=== PATIENT | female | born 1950 | race African-American/Black ===

== ENCOUNTER 2018-04-04 07:14 | Inpatient (IN) | payer MEDICARE, MEDICAID ==
[2018-04-04 07:57] LABS: ADD MAN DIFF? NO
[2018-04-04 08:05] LABS: WHITE BLOOD COUNT 15.9 10^3/ul (4.8-10.8)
[2018-04-04 08:05] LABS: ABNORMAL IP MESSAGE 1; BASOPHIL # 0.1 10^3/ul (0.0-0.1); BASOPHILS % 0.4 % (0.0-2.0); EOSINOPHILS # 0.2 10^3/ul (0.0-0.5); EOSINOPHILS % 1.1 % (0.0-7.0); HEMATOCRIT 37.9 % (37.0-47.0); HEMOGLOBIN 10.7 g/dl (12.0-16.0); LYMPHOCYTES # 6.1 10^3/ul (0.8-2.9); LYMPHOCYTES % 38.3 % (15.0-51.0); MEAN CORPUSCULAR HGB CONC 28.2 g/dl (32.0-37.0); MEAN CORPUSCULAR VOLUME 88.6 fl (82.0-101.0); MEAN PLATELET VOLUME 11.5 fl (7.4-10.4); MONOCYTE # 0.9 10^3/ul (0.3-0.9); MONOCYTES % 5.6 % (0.0-11.0); NEUTROPHIL # 8.6 10^3/ul (1.6-7.5); NEUTROPHILS % 54.2 % (39.0-77.0); PLATELET COUNT 379 10^3/UL (140-415); RED BLOOD COUNT 4.28 10^6/ul (4.20-5.40); RED CELL DISTRIBUTION WIDTH 18.4 % (11.5-14.5)
[2018-04-04 08:08] LABS: POSITIVE DIFF @See below
[2018-04-04 08:15] LABS: AADO2 Arterial 370.1 mmHg (7.0-24.0); Allen Test ACCEPTAB; Arterial Base Excess 3.3 mmol/L (-3.0-3); Arterial Blood Gas Oxygen Sat 99.4 mmHG (95.0-98.0); Arterial COHb 0.7 % (0.0-3.0); Arterial Fraction of Oxyhgb 98.3 % (93.0-99.0); Arterial HCO3 31.5 mmol/L (22.0-26.0); Arterial MetHb 0.4 % (0.0-1.5); Arterial Total Hemglobin 10.8 g/dl (12.0-18.0); Blood Gas IEPAP 15/5; Blood Gas PS 10; MODE MASK - BIPAP; Site Right Radial
[2018-04-04] MEDS: CEFEPIME 1GM/50 ML (PMX) 50 ML IVPB (08:19)
[2018-04-04 08:30] LABS: INR 0.98; PARTIAL THROMBOPLASTIN TIME 30.5 Sec (25.0-35.0); PROTIME 13.1 Sec (11.9-14.9)
[2018-04-04] MEDS ORDERED: ACETAMINOPHEN 325 MG TAB PO ×2 (08:30→10:00)
[2018-04-04] MEDS ORDERED: ONDANSETRON 4 MG INJ IV ×2 (08:30→10:00)
[2018-04-04] MEDS: SODIUM CHLORIDE 0.9% 1L BAG IV* (08:36)
[2018-04-04] MEDS: VANCOMYCIN 1 GM (PMX) 250 ML IVPB (08:36)
[2018-04-04 08:41] LABS: ALANINE AMINOTRANSFERASE 43 IU/L (13-69); ALBUMIN 3.8 g/dl (3.3-4.9); ALBUMIN/GLOBULIN RATIO 1.08; ALKALINE PHOSPHATASE 123 IU/L (42-121); ANION GAP 13 (8-16); ASPARTATE AMINO TRANSFERASE 44 IU/L (15-46); BILIRUBIN,INDIRECT 0.1 mg/dl (0-1.1); BILIRUBIN,TOTAL 0.1 mg/dl (0.2-1.3); BLOOD UREA NITROGEN 15 mg/dl (7-20); CALCIUM 9.7 mg/dl (8.4-10.2); CARBON DIOXIDE 34 mmol/L (21-31); CHLORIDE 105 mmol/L (97-110); CREATININE 0.84 mg/dl (0.44-1.00); GLUCOSE 157 mg/dl (70-220); POTASSIUM 3.9 mmol/L (3.5-5.1); SODIUM 148 mmol/L (135-144); TOTAL PROTEIN 7.3 g/dl (6.1-8.1)
[2018-04-04 08:44] LABS: LACTIC ACID 0.8 mmol/L (0.5-2.0)
[2018-04-04 08:56] LABS: TROPONIN-I 0.032 ng/ml (0.000-0.120)
[2018-04-04] MEDS ORDERED: SOD CHLORIDE 0.9% 1,000 ML IV (09:49)
[2018-04-04] MEDS ORDERED: VANCOMYCIN IV PER PHARMACY XX (10:00)
[2018-04-04] MEDS ORDERED: NACL 0.9% 3 ML SYG IV (10:00)
[2018-04-04] MEDS ORDERED: DOCUSATE SODIUM 100 MG CAP PO (10:00)
[2018-04-04] MEDS: AMLODIPINE 2.5 MG TAB PO (10:30)
[2018-04-04] MEDS: SOD CHLORIDE 0.45% 1,000 ML IV ×2 (10:30→20:30)
[2018-04-04] MEDS: METHYLPREDNISOLONE 125 MG INJ IV (10:43)
[2018-04-04] MEDS: FUROSEMIDE 40 MG INJ IV (11:55)
[2018-04-04] MEDS: VANCOMYCIN 1 GM in 250 ML IVPB ×2 (11:55→22:35)
[2018-04-04] MEDS: PIPER-TAZO 3.375 GM IV (PMX) 100 ML IVPB ×3 (12:00→23:43)
[2018-04-04 12:28] LABS: ADD UMIC YES; UR ASCORBIC ACID NEGATIVE (NEGATIVE); UR BACTERIA FEW /HPF (NONE SEEN); UR BILIRUBIN (Dip) NEGATIVE (NEGATIVE); UR BLOOD (Dip) NEGATIVE (NEGATIVE); UR CLARITY CLEAR (CLEAR); UR COLOR YELLOW (YELLOW); UR GLUCOSE (Dip) NEGATIVE (NEGATIVE); UR KETONES (Dip) NEGATIVE (NEGATIVE); UR LEUKOCYTE ESTERASE (Dip) NEGATIVE Leu/ul (NEGATIVE); UR NITRITE (Dip) NEGATIVE (NEGATIVE); UR RBC 0 /HPF (0-5); UR SPECIFIC GRAVITY (Dip) 1.011 (1.003-1.030); UR SQUAMOUS EPITHELIAL CELL FEW /HPF (FEW); UR TOTAL PROTEIN (Dip) 2+ mg/dl (NEGATIVE); UR UROBILINOGEN (Dip) NEGATIVE (NEGATIVE); UR WBC 1 /HPF (0-5)
[2018-04-04] MEDS: IOHEXOL 300MG/ML 150 ML BTL (12:50)
[2018-04-04] MEDS: SOD CHLORIDE 0.9% 100 ML (12:50)
[2018-04-04] MEDS: ALBUTEROL/IPRATROPIUM (NEB) 3 ML AMP HHN ×3 (13:24→20:33)
[2018-04-04 13:47] LABS: LACTIC ACID 0.6 mmol/L (0.5-2.0)
[2018-04-04] MEDS: METHYLPREDNISOLONE 40 MG INJ IV ×2 (15:30→22:34)
[2018-04-04 17:46] LABS: LACTIC ACID 0.9 mmol/L (0.5-2.0)
[2018-04-04] MEDS: HYDROmorphONE 0.5 MG/0.5 ML SYG IV ×2 (18:03→22:33)
[2018-04-04] MEDS: hydrALAzine 20 MG INJ IV (18:03)
[2018-04-04 19:42] LABS: AADO2 Arterial 118.1 mmHg (7.0-24.0); Allen Test ACCEPTAB; Arterial Base Excess 6.3 mmol/L (-3.0-3); Arterial Blood Gas Oxygen Sat 96.3 mmHG (95.0-98.0); Arterial COHb 0.6 % (0.0-3.0); Arterial Fraction of Oxyhgb 95.3 % (93.0-99.0); Arterial HCO3 30.9 mmol/L (22.0-26.0); Arterial MetHb 0.4 % (0.0-1.5); Arterial Total Hemglobin 11.8 g/dl (12.0-18.0); Arterial pCO2 44.7 mmhg (35-45); Blood Gas IEPAP 15/5; Blood Gas PS 10; MODE MASK - BIPAP; Site Left Radial
[2018-04-04] MEDS ORDERED: VANCOMYCIN 750 MG in DEXTROSE 5% 150 ML IVPB (20:00)
[2018-04-04] MEDS: SENNA TAB PO (22:31)
[2018-04-04] MEDS: OXCARBAZEPINE 150 MG TAB PO (22:32)
[2018-04-04] MEDS: FAMOTIDINE 20 MG TAB PO (22:32)
[2018-04-04] MEDS: traZODone 100 MG TAB PO (22:32)
[2018-04-04] MEDS: BUSPIRONE 5 MG TAB PO (22:32)
[2018-04-05] MEDS: ALBUTEROL/IPRATROPIUM (NEB) 3 ML AMP HHN ×5 (00:10→21:02)
[2018-04-05] MEDS: METHYLPREDNISOLONE 40 MG INJ IV ×3 (05:34→22:03)
[2018-04-05] MEDS: PIPER-TAZO 3.375 GM IV (PMX) 100 ML IVPB ×2 (05:34→12:13)
[2018-04-05] MEDS: SOD CHLORIDE 0.45% 1,000 ML IV ×2 (05:34→16:17)
[2018-04-05 05:51] LABS: ADD MAN DIFF? NO
[2018-04-05 05:53] LABS: ABNORMAL IP MESSAGE 1; HEMATOCRIT 33.6 % (37.0-47.0); LYMPHOCYTES # 0.6 10^3/ul (0.8-2.9); LYMPHOCYTES % 6.9 % (15.0-51.0); MEAN CORPUSCULAR HEMOGLOBIN 25.1 pg (29.0-33.0); MEAN CORPUSCULAR HGB CONC 29.8 g/dl (32.0-37.0); MEAN CORPUSCULAR VOLUME 84.4 fl (82.0-101.0); MEAN PLATELET VOLUME 10.7 fl (7.4-10.4); MONOCYTE # 0.1 10^3/ul (0.3-0.9); MONOCYTES % 0.8 % (0.0-11.0); NEUTROPHIL # 7.6 10^3/ul (1.6-7.5); NEUTROPHILS % 91.9 % (39.0-77.0); PLATELET COUNT 229 10^3/UL (140-415); RED BLOOD COUNT 3.98 10^6/ul (4.20-5.40); RED CELL DISTRIBUTION WIDTH 18.1 % (11.5-14.5)
[2018-04-05 05:53] LABS: WHITE BLOOD COUNT 8.3 10^3/ul (4.8-10.8)
[2018-04-05 06:07] LABS: POSITIVE DIFF @See below
[2018-04-05 06:21] LABS: ALANINE AMINOTRANSFERASE 37 IU/L (13-69); ALBUMIN 3.5 g/dl (3.3-4.9); ALBUMIN/GLOBULIN RATIO 1.09; ALKALINE PHOSPHATASE 97 IU/L (42-121); ANION GAP 14 (8-16); ASPARTATE AMINO TRANSFERASE 32 IU/L (15-46); BILIRUBIN,INDIRECT 0.2 mg/dl (0-1.1); BILIRUBIN,TOTAL 0.2 mg/dl (0.2-1.3); BLOOD UREA NITROGEN 19 mg/dl (7-20); CALCIUM 8.8 mg/dl (8.4-10.2); CARBON DIOXIDE 32 mmol/L (21-31); CHLORIDE 101 mmol/L (97-110); CHOL/HDL RATIO 4.1 RATIO; CHOLESTEROL 256 mg/dl (100-200); CREATININE 0.88 mg/dl (0.44-1.00); GLUCOSE 117 mg/dl (70-220); HDL CHOLESTEROL 62 mg/dl (33-92); LDL CHOLESTEROL,CALCULATED 180 mg/dl; MAGNESIUM 1.2 mg/dl (1.7-2.5); PHOSPHORUS 4.1 mg/dl (2.5-4.9); POTASSIUM 3.8 mmol/L (3.5-5.1); SODIUM 143 mmol/L (135-144); TOTAL PROTEIN 6.7 g/dl (6.1-8.1); TRIGLYCERIDES 72 mg/dl (0-149)
[2018-04-05 06:49] LABS: THYROID STIMULATING HORMONE 0.671 MIU/L (0.465-4.680)
[2018-04-05] MEDS: PANTOPRAZOLE (EC) 40 MG TAB PO (07:00)
[2018-04-05 07:10] LABS: HEMOGLOBIN A1C 5.3 % (0-5.9)
[2018-04-05 08:47] LABS: AADO2 Arterial 98.1 mmHg (7.0-24.0); Allen Test ACCEPTAB; Arterial Base Excess 6.7 mmol/L (-3.0-3); Arterial Blood Gas Oxygen Sat 97.3 mmHG (95.0-98.0); Arterial COHb 0.3 % (0.0-3.0); Arterial Fraction of Oxyhgb 96.6 % (93.0-99.0); Arterial HCO3 31.6 mmol/L (22.0-26.0); Arterial MetHb 0.4 % (0.0-1.5); Arterial Total Hemglobin 10.9 g/dl (12.0-18.0); Arterial pCO2 46.5 mmhg (35-45); Blood Gas IEPAP 15/5; Blood Gas PS 10; MODE MASK - BIPAP; Site Right Radial
[2018-04-05] MEDS: CYANOCOBALAMIN 500 MCG TAB PO (09:14)
[2018-04-05] MEDS: OLOPATADINE 0.2% (ONCE A DAY) OPHTH DROP 2.5 ML BOTH EYES (09:14)
[2018-04-05] MEDS: MULTIVITAMINS THERAPEUTIC TAB PO (09:15)
[2018-04-05] MEDS: SERTRALINE 100 MG TAB PO (09:15)
[2018-04-05] MEDS: SENNA TAB PO ×2 (09:16→21:00)
[2018-04-05] MEDS: ERGOCALCIFEROL (8000 UNITS/ML PO SYG) PO (09:16)
[2018-04-05] MEDS: OXCARBAZEPINE 150 MG TAB PO (09:17)
[2018-04-05] MEDS: BUSPIRONE 5 MG TAB PO ×2 (09:18→22:03)
[2018-04-05] MEDS: FAMOTIDINE 20 MG TAB PO ×2 (09:36→21:00)
[2018-04-05] MEDS: ENOXAPARIN 40 MG/0.4 ML SYG SC (09:38)
[2018-04-05] MEDS: FUROSEMIDE 40 MG INJ IV (09:41)
[2018-04-05] MEDS: VANCOMYCIN 1 GM in 250 ML IVPB (11:04)
[2018-04-05] MEDS: LORAZEPAM 2 MG INJ IV (12:13)
[2018-04-05] MEDS: AMLODIPINE 2.5 MG TAB PO (15:13)
[2018-04-05] MEDS: HYDROmorphONE 0.5 MG/0.5 ML SYG IV ×2 (16:14→23:37)
[2018-04-05] MEDS: CEFTRIAXONE 1 GM/50 ML (PMX) 50 ML IVPB (17:01)
[2018-04-05] MEDS: MAGNESIUM SULFATE 4 GM/100 ML 100 ML IVPB (17:42)
[2018-04-05] MEDS: AZITHROMYCIN 500MG/NS (PMX) 250 ML IVPB (18:07)
[2018-04-05] MEDS: traZODone 100 MG TAB PO (21:00)
[2018-04-05] MEDS: MAGNESIUM OXIDE 400 MG TAB PO (21:03)
[2018-04-05] MEDS: OXCARBAZEPINE 300 MG TAB PO (22:03)
[2018-04-06] MEDS: ALBUTEROL/IPRATROPIUM (NEB) 3 ML AMP HHN ×6 (01:53→20:01)
[2018-04-06] MEDS: SOD CHLORIDE 0.45% 1,000 ML IV ×2 (02:30→12:24)
[2018-04-06] MEDS: METHYLPREDNISOLONE 40 MG INJ IV ×3 (05:48→22:28)
[2018-04-06 07:12] LABS: ADD MAN DIFF? NO
[2018-04-06 07:14] LABS: ABNORMAL IP MESSAGE 1; BASOPHILS % 0.1 % (0.0-2.0); HEMATOCRIT 31.1 % (37.0-47.0); HEMOGLOBIN 9.4 g/dl (12.0-16.0); LYMPHOCYTES # 0.5 10^3/ul (0.8-2.9); MEAN CORPUSCULAR HEMOGLOBIN 25.3 pg (29.0-33.0); MEAN CORPUSCULAR HGB CONC 30.2 g/dl (32.0-37.0); MEAN CORPUSCULAR VOLUME 83.8 fl (82.0-101.0); MEAN PLATELET VOLUME 11.4 fl (7.4-10.4); MONOCYTE # 0.3 10^3/ul (0.3-0.9); MONOCYTES % 2.5 % (0.0-11.0); NEUTROPHIL # 9.7 10^3/ul (1.6-7.5); PLATELET COUNT 241 10^3/UL (140-415); RED BLOOD COUNT 3.71 10^6/ul (4.20-5.40); RED CELL DISTRIBUTION WIDTH 18.3 % (11.5-14.5)
[2018-04-06 07:14] LABS: WHITE BLOOD COUNT 10.5 10^3/ul (4.8-10.8)
[2018-04-06 08:00] LABS: ANION GAP 9 (8-16); BLOOD UREA NITROGEN 26 mg/dl (7-20); CALCIUM 8.5 mg/dl (8.4-10.2); CARBON DIOXIDE 37 mmol/L (21-31); CHLORIDE 99 mmol/L (97-110); CREATININE 0.95 mg/dl (0.44-1.00); GLUCOSE 140 mg/dl (70-220); MAGNESIUM 2.5 mg/dl (1.7-2.5); PHOSPHORUS 3.7 mg/dl (2.5-4.9); POTASSIUM 3.4 mmol/L (3.5-5.1); SODIUM 142 mmol/L (135-144)
[2018-04-06] MEDS: OLOPATADINE 0.2% (ONCE A DAY) OPHTH DROP 2.5 ML BOTH EYES (09:00)
[2018-04-06] MEDS: ERGOCALCIFEROL (8000 UNITS/ML PO SYG) PO (09:00)
[2018-04-06] MEDS: HYDROmorphONE 0.5 MG/0.5 ML SYG IV ×4 (09:07→22:30)
[2018-04-06] MEDS: PANTOPRAZOLE (EC) 40 MG TAB PO (09:11)
[2018-04-06] MEDS: BUSPIRONE 5 MG TAB PO ×2 (09:12→20:38)
[2018-04-06] MEDS: FUROSEMIDE 40 MG INJ IV (09:12)
[2018-04-06] MEDS: CYANOCOBALAMIN 500 MCG TAB PO (09:13)
[2018-04-06] MEDS: SERTRALINE 100 MG TAB PO (09:13)
[2018-04-06] MEDS: OXCARBAZEPINE 300 MG TAB PO ×2 (09:14→20:39)
[2018-04-06] MEDS: FAMOTIDINE 20 MG TAB PO ×2 (09:16→20:39)
[2018-04-06] MEDS: AMLODIPINE 5 MG TAB PO (09:16)
[2018-04-06] MEDS: MAGNESIUM OXIDE 400 MG TAB PO ×2 (09:16→20:41)
[2018-04-06] MEDS: SENNA TAB PO ×2 (09:16→20:45)
[2018-04-06] MEDS: MULTIVITAMINS THERAPEUTIC TAB PO (09:16)
[2018-04-06] MEDS: ENOXAPARIN 40 MG/0.4 ML SYG SC (09:17)
[2018-04-06 09:30] LABS: AADO2 Arterial 68.4 mmHg (7.0-24.0); Allen Test ACCEPTAB; Arterial Base Excess 4.2 mmol/L (-3.0-3); Arterial Blood Gas Oxygen Sat 93.4 mmHG (95.0-98.0); Arterial COHb 0.4 % (0.0-3.0); Arterial Fraction of Oxyhgb 92.7 % (93.0-99.0); Arterial HCO3 29.1 mmol/L (22.0-26.0); Arterial MetHb 0.3 % (0.0-1.5); Arterial pCO2 44.6 mmhg (35-45); MODE NASAL CANNULA; Site Right Radial
[2018-04-06] MEDS ORDERED: VANCOMYCIN IV PER PHARMACY XX (11:00)
[2018-04-06] MEDS: VANCOMYCIN 1 GM 250 ML IVPB ×2 (12:20→23:07)
[2018-04-06] MEDS: POTASSIUM CHLORIDE (SR) 20 MEQ TAB PO (15:04)
[2018-04-06] MEDS: PIPER-TAZO 3.375 GM IV (PMX) 100 ML IVPB ×2 (15:22→22:28)
[2018-04-06] MEDS: traZODone 100 MG TAB PO (20:39)
[2018-04-07] MEDS: ALBUTEROL/IPRATROPIUM (NEB) 3 ML AMP HHN ×6 (02:11→20:30)
[2018-04-07] MEDS: HYDROmorphONE 0.5 MG/0.5 ML SYG IV ×6 (02:43→22:10)
[2018-04-07] MEDS: SOD CHLORIDE 0.45% 1,000 ML IV ×3 (04:29→18:55)
[2018-04-07] MEDS: METHYLPREDNISOLONE 40 MG INJ IV ×3 (06:14→22:10)
[2018-04-07] MEDS: PIPER-TAZO 3.375 GM IV (PMX) 100 ML IVPB ×3 (06:14→22:11)
[2018-04-07 06:51] LABS: ADD MAN DIFF? NO
[2018-04-07 06:52] LABS: WHITE BLOOD COUNT 12.7 10^3/ul (4.8-10.8)
[2018-04-07 06:52] LABS: BASOPHILS % 0.1 % (0.0-2.0); HEMATOCRIT 32.8 % (37.0-47.0); HEMOGLOBIN 9.7 g/dl (12.0-16.0); LYMPHOCYTES # 0.8 10^3/ul (0.8-2.9); LYMPHOCYTES % 5.9 % (15.0-51.0); MEAN CORPUSCULAR HEMOGLOBIN 25.3 pg (29.0-33.0); MEAN CORPUSCULAR HGB CONC 29.6 g/dl (32.0-37.0); MEAN CORPUSCULAR VOLUME 85.4 fl (82.0-101.0); MEAN PLATELET VOLUME 12.1 fl (7.4-10.4); MONOCYTE # 0.4 10^3/ul (0.3-0.9); MONOCYTES % 3.5 % (0.0-11.0); NEUTROPHIL # 11.4 10^3/ul (1.6-7.5); NEUTROPHILS % 89.6 % (39.0-77.0); PLATELET COUNT 265 10^3/UL (140-415); RED BLOOD COUNT 3.84 10^6/ul (4.20-5.40); RED CELL DISTRIBUTION WIDTH 18.6 % (11.5-14.5)
[2018-04-07 07:30] LABS: ANION GAP 16 (8-16); BLOOD UREA NITROGEN 28 mg/dl (7-20); CALCIUM 8.7 mg/dl (8.4-10.2); CARBON DIOXIDE 34 mmol/L (21-31); CHLORIDE 100 mmol/L (97-110); GLUCOSE 136 mg/dl (70-220); POTASSIUM 3.9 mmol/L (3.5-5.1); SODIUM 146 mmol/L (135-144)
[2018-04-07] MEDS: PANTOPRAZOLE (EC) 40 MG TAB PO (08:43)
[2018-04-07] MEDS: ENOXAPARIN 40 MG/0.4 ML SYG SC (08:43)
[2018-04-07] MEDS: MAGNESIUM OXIDE 400 MG TAB PO ×2 (08:43→21:29)
[2018-04-07] MEDS: MULTIVITAMINS THERAPEUTIC TAB PO (08:43)
[2018-04-07] MEDS: SENNA TAB PO ×2 (08:43→21:00)
[2018-04-07] MEDS: FAMOTIDINE 20 MG TAB PO ×2 (08:44→21:29)
[2018-04-07] MEDS: OXCARBAZEPINE 300 MG TAB PO ×2 (08:44→21:30)
[2018-04-07] MEDS: OLOPATADINE 0.2% (ONCE A DAY) OPHTH DROP 2.5 ML BOTH EYES (08:44)
[2018-04-07] MEDS: CYANOCOBALAMIN 500 MCG TAB PO (08:44)
[2018-04-07] MEDS: SERTRALINE 100 MG TAB PO (08:44)
[2018-04-07] MEDS: FUROSEMIDE 40 MG INJ IV (08:45)
[2018-04-07] MEDS: AMLODIPINE 5 MG TAB PO (08:45)
[2018-04-07] MEDS: BUSPIRONE 5 MG TAB PO ×2 (08:45→21:27)
[2018-04-07] MEDS: ERGOCALCIFEROL (8000 UNITS/ML PO SYG) PO (09:00)
[2018-04-07] MEDS: VANCOMYCIN 1 GM 250 ML IVPB (11:11)
[2018-04-07] MEDS: traZODone 100 MG TAB PO (21:29)
[2018-04-07 22:49] LABS: VANCOMYCIN,TROUGH 25.1 ug/ml (10.0-20.0)
[2018-04-08] MEDS: ALBUTEROL/IPRATROPIUM (NEB) 3 ML AMP HHN ×6 (00:19→20:21)
[2018-04-08] MEDS: METHYLPREDNISOLONE 40 MG INJ IV ×3 (06:01→22:40)
[2018-04-08] MEDS: PIPER-TAZO 3.375 GM IV (PMX) 100 ML IVPB ×3 (06:01→22:41)
[2018-04-08] MEDS: SOD CHLORIDE 0.45% 1,000 ML IV ×2 (06:01→17:36)
[2018-04-08 06:04] LABS: ADD MAN DIFF? NO
[2018-04-08 06:13] LABS: BASOPHILS % 0.1 % (0.0-2.0); HEMATOCRIT 32.5 % (37.0-47.0); HEMOGLOBIN 9.6 g/dl (12.0-16.0); LYMPHOCYTES # 0.9 10^3/ul (0.8-2.9); LYMPHOCYTES % 7.3 % (15.0-51.0); MEAN CORPUSCULAR HEMOGLOBIN 25.4 pg (29.0-33.0); MEAN CORPUSCULAR HGB CONC 29.5 g/dl (32.0-37.0); MEAN PLATELET VOLUME 11.7 fl (7.4-10.4); MONOCYTE # 0.7 10^3/ul (0.3-0.9); MONOCYTES % 5.1 % (0.0-11.0); NEUTROPHIL # 11.1 10^3/ul (1.6-7.5); NEUTROPHILS % 86.4 % (39.0-77.0); PLATELET COUNT 234 10^3/UL (140-415); RED BLOOD COUNT 3.78 10^6/ul (4.20-5.40); RED CELL DISTRIBUTION WIDTH 18.4 % (11.5-14.5)
[2018-04-08 06:13] LABS: WHITE BLOOD COUNT 12.8 10^3/ul (4.8-10.8)
[2018-04-08] MEDS: HYDROmorphONE 0.5 MG/0.5 ML SYG IV ×5 (06:16→20:36)
[2018-04-08 06:35] LABS: ANION GAP 14 (8-16); BLOOD UREA NITROGEN 26 mg/dl (7-20); CALCIUM 8.8 mg/dl (8.4-10.2); CARBON DIOXIDE 35 mmol/L (21-31); CHLORIDE 101 mmol/L (97-110); CREATININE 0.98 mg/dl (0.44-1.00); GLUCOSE 144 mg/dl (70-220); POTASSIUM 3.7 mmol/L (3.5-5.1); SODIUM 146 mmol/L (135-144)
[2018-04-08] MEDS: PANTOPRAZOLE (EC) 40 MG TAB PO (08:18)
[2018-04-08] MEDS: OLOPATADINE 0.2% (ONCE A DAY) OPHTH DROP 2.5 ML BOTH EYES (08:18)
[2018-04-08] MEDS: FUROSEMIDE 40 MG INJ IV (08:19)
[2018-04-08] MEDS: SENNA TAB PO (08:20)
[2018-04-08] MEDS: BUSPIRONE 5 MG TAB PO ×2 (08:20→20:44)
[2018-04-08] MEDS: CYANOCOBALAMIN 500 MCG TAB PO (08:20)
[2018-04-08] MEDS: MULTIVITAMINS THERAPEUTIC TAB PO (08:20)
[2018-04-08] MEDS: MAGNESIUM OXIDE 400 MG TAB PO ×2 (08:21→20:44)
[2018-04-08] MEDS: SERTRALINE 100 MG TAB PO (08:21)
[2018-04-08] MEDS: FAMOTIDINE 20 MG TAB PO (08:21)
[2018-04-08] MEDS: OXCARBAZEPINE 300 MG TAB PO ×2 (08:21→22:40)
[2018-04-08] MEDS: AMLODIPINE 5 MG TAB PO (08:22)
[2018-04-08] MEDS: ENOXAPARIN 40 MG/0.4 ML SYG SC (08:29)
[2018-04-08] MEDS: ERGOCALCIFEROL (8000 UNITS/ML PO SYG) PO (08:40)
[2018-04-08] MEDS: LACTOBACILLUS RHAMNOSUS CAP PO ×2 (11:19→20:44)
[2018-04-08] MEDS: VANCOMYCIN 1 GM 250 ML IVPB (11:19)
[2018-04-08] MEDS: LISINOPRIL 5 MG TAB PO (11:20)
[2018-04-08] MEDS: LOPERAMIDE LIQUID CUP 1 MG/5 ML CUP PO (13:30)
[2018-04-08] MEDS: traZODone 100 MG TAB PO (20:44)
[2018-04-09] MEDS: HYDROmorphONE 0.5 MG/0.5 ML SYG IV ×6 (01:10→22:45)
[2018-04-09] MEDS: ALBUTEROL/IPRATROPIUM (NEB) 3 ML AMP HHN ×4 (02:07→16:00)
[2018-04-09] MEDS: METHYLPREDNISOLONE 40 MG INJ IV ×3 (06:16→21:51)
[2018-04-09] MEDS: PIPER-TAZO 3.375 GM IV (PMX) 100 ML IVPB ×2 (06:16→14:12)
[2018-04-09 06:26] LABS: ADD MAN DIFF? NO
[2018-04-09 06:32] LABS: BASOPHILS % 0.1 % (0.0-2.0); HEMATOCRIT 33.3 % (37.0-47.0); HEMOGLOBIN 9.9 g/dl (12.0-16.0); LYMPHOCYTES # 0.9 10^3/ul (0.8-2.9); LYMPHOCYTES % 6.3 % (15.0-51.0); MEAN CORPUSCULAR HEMOGLOBIN 25.6 pg (29.0-33.0); MEAN CORPUSCULAR HGB CONC 29.7 g/dl (32.0-37.0); MEAN PLATELET VOLUME 11.8 fl (7.4-10.4); MONOCYTE # 0.6 10^3/ul (0.3-0.9); MONOCYTES % 4.4 % (0.0-11.0); NEUTROPHIL # 12.1 10^3/ul (1.6-7.5); NEUTROPHILS % 88.2 % (39.0-77.0); PLATELET COUNT 235 10^3/UL (140-415); RED BLOOD COUNT 3.87 10^6/ul (4.20-5.40); RED CELL DISTRIBUTION WIDTH 18.3 % (11.5-14.5)
[2018-04-09 06:32] LABS: WHITE BLOOD COUNT 13.7 10^3/ul (4.8-10.8)
[2018-04-09 07:23] LABS: ANION GAP 15 (8-16); BLOOD UREA NITROGEN 24 mg/dl (7-20); CARBON DIOXIDE 37 mmol/L (21-31); CHLORIDE 98 mmol/L (97-110); CREATININE 0.98 mg/dl (0.44-1.00); GLUCOSE 113 mg/dl (70-220); MAGNESIUM 1.7 mg/dl (1.7-2.5); PHOSPHORUS 3.4 mg/dl (2.5-4.9); POTASSIUM 3.7 mmol/L (3.5-5.1); SODIUM 146 mmol/L (135-144)
[2018-04-09] MEDS: PANTOPRAZOLE (EC) 40 MG TAB PO (09:52)
[2018-04-09] MEDS: LACTOBACILLUS RHAMNOSUS CAP PO ×2 (09:52→21:29)
[2018-04-09] MEDS: BUSPIRONE 5 MG TAB PO ×2 (09:52→21:29)
[2018-04-09] MEDS: OXCARBAZEPINE 300 MG TAB PO ×2 (09:53→21:28)
[2018-04-09] MEDS: MAGNESIUM OXIDE 400 MG TAB PO ×2 (09:53→21:29)
[2018-04-09] MEDS: FAMOTIDINE 20 MG TAB PO (09:53)
[2018-04-09] MEDS: CYANOCOBALAMIN 500 MCG TAB PO (09:53)
[2018-04-09] MEDS: MULTIVITAMINS THERAPEUTIC TAB PO (09:53)
[2018-04-09] MEDS: AMLODIPINE 5 MG TAB PO (09:54)
[2018-04-09] MEDS: LISINOPRIL 5 MG TAB PO (09:54)
[2018-04-09] MEDS: SERTRALINE 100 MG TAB PO (09:54)
[2018-04-09] MEDS: ENOXAPARIN 40 MG/0.4 ML SYG SC (09:56)
[2018-04-09] MEDS: VANCOMYCIN 1 GM 250 ML IVPB (11:33)
[2018-04-09] MEDS: SOD CHLORIDE 0.45% 1,000 ML IV (11:38)
[2018-04-09] MEDS: OLOPATADINE 0.2% (ONCE A DAY) OPHTH DROP 2.5 ML BOTH EYES (14:13)
[2018-04-09] MEDS: ERGOCALCIFEROL (8000 UNITS/ML PO SYG) PO (14:13)
[2018-04-09 15:03] LABS: RHEUMATOID FACTOR NEGATIVE (NEGATIVE)
[2018-04-09] MEDS: metroNIDAZOLE 500 MG/NS (PMX) 100 ML IVPB (21:28)
[2018-04-10] MEDS: ALBUTEROL/IPRATROPIUM (NEB) 3 ML AMP HHN ×4 (00:58→23:18)
[2018-04-10] MEDS: HYDROmorphONE 0.5 MG/0.5 ML SYG IV ×7 (01:39→22:36)
[2018-04-10] MEDS: metroNIDAZOLE 500 MG/NS (PMX) 100 ML IVPB ×4 (02:32→17:58)
[2018-04-10] MEDS: METHYLPREDNISOLONE 40 MG INJ IV (05:20)
[2018-04-10 06:00] LABS: ADD MAN DIFF? NO
[2018-04-10 06:16] LABS: BASOPHILS % 0.1 % (0.0-2.0); EOSINOPHILS % 0.2 % (0.0-7.0); HEMATOCRIT 31.8 % (37.0-47.0); HEMOGLOBIN 9.5 g/dl (12.0-16.0); LYMPHOCYTES # 1.4 10^3/ul (0.8-2.9); LYMPHOCYTES % 9.3 % (15.0-51.0); MEAN CORPUSCULAR HEMOGLOBIN 25.5 pg (29.0-33.0); MEAN CORPUSCULAR HGB CONC 29.9 g/dl (32.0-37.0); MEAN CORPUSCULAR VOLUME 85.3 fl (82.0-101.0); MEAN PLATELET VOLUME 12.8 fl (7.4-10.4); MONOCYTE # 0.8 10^3/ul (0.3-0.9); MONOCYTES % 5.5 % (0.0-11.0); NEUTROPHIL # 12.6 10^3/ul (1.6-7.5); NEUTROPHILS % 83.8 % (39.0-77.0); PLATELET COUNT 268 10^3/UL (140-415); RED BLOOD COUNT 3.73 10^6/ul (4.20-5.40); RED CELL DISTRIBUTION WIDTH 18.3 % (11.5-14.5)
[2018-04-10 07:13] LABS: ALANINE AMINOTRANSFERASE 29 IU/L (13-69); ALBUMIN 3.1 g/dl (3.3-4.9); ALBUMIN/GLOBULIN RATIO 1.03; ALKALINE PHOSPHATASE 85 IU/L (42-121); ANION GAP 11 (8-16); ASPARTATE AMINO TRANSFERASE 15 IU/L (15-46); BLOOD UREA NITROGEN 22 mg/dl (7-20); CARBON DIOXIDE 37 mmol/L (21-31); CHLORIDE 102 mmol/L (97-110); CREATININE 0.82 mg/dl (0.44-1.00); GLUCOSE 129 mg/dl (70-220); MAGNESIUM 1.7 mg/dl (1.7-2.5); PHOSPHORUS 3.3 mg/dl (2.5-4.9); POTASSIUM 3.5 mmol/L (3.5-5.1); SODIUM 146 mmol/L (135-144); TOTAL PROTEIN 6.1 g/dl (6.1-8.1)
[2018-04-10] MEDS: FAMOTIDINE 20 MG TAB PO (08:54)
[2018-04-10] MEDS: SERTRALINE 100 MG TAB PO (08:54)
[2018-04-10] MEDS: CYANOCOBALAMIN 500 MCG TAB PO (08:54)
[2018-04-10] MEDS: MAGNESIUM OXIDE 400 MG TAB PO ×2 (08:54→20:48)
[2018-04-10] MEDS: LACTOBACILLUS RHAMNOSUS CAP PO ×2 (08:54→20:48)
[2018-04-10] MEDS: OXCARBAZEPINE 300 MG TAB PO ×2 (08:54→20:48)
[2018-04-10] MEDS: MULTIVITAMINS THERAPEUTIC TAB PO (08:54)
[2018-04-10] MEDS: BUSPIRONE 5 MG TAB PO ×2 (08:54→20:45)
[2018-04-10] MEDS: AMLODIPINE 5 MG TAB PO (08:55)
[2018-04-10] MEDS: LISINOPRIL 5 MG TAB PO (08:55)
[2018-04-10] MEDS: ENOXAPARIN 40 MG/0.4 ML SYG SC (08:59)
[2018-04-10] MEDS: ERGOCALCIFEROL (8000 UNITS/ML PO SYG) PO (09:00)
[2018-04-10] MEDS: OLOPATADINE 0.2% (ONCE A DAY) OPHTH DROP 2.5 ML BOTH EYES (11:59)
[2018-04-10] MEDS: SOD CHLORIDE 0.45% 1,000 ML IV (12:00)
[2018-04-10] MEDS: ATORVASTATIN 20 MG TAB PO (20:48)
[2018-04-11] MEDS: metroNIDAZOLE 500 MG/NS (PMX) 100 ML IVPB ×3 (00:20→11:56)
[2018-04-11] MEDS: HYDROmorphONE 0.5 MG/0.5 ML SYG IV ×7 (03:01→22:32)
[2018-04-11 06:49] LABS: ADD MAN DIFF? NO
[2018-04-11 06:53] LABS: WHITE BLOOD COUNT 13.2 10^3/ul (4.8-10.8)
[2018-04-11 06:53] LABS: ABNORMAL IP MESSAGE 1; BASOPHILS % 0.1 % (0.0-2.0); EOSINOPHILS # 0.4 10^3/ul (0.0-0.5); EOSINOPHILS % 3.2 % (0.0-7.0); HEMATOCRIT 33.3 % (37.0-47.0); HEMOGLOBIN 9.5 g/dl (12.0-16.0); LYMPHOCYTES # 2.1 10^3/ul (0.8-2.9); LYMPHOCYTES % 15.5 % (15.0-51.0); MEAN CORPUSCULAR HEMOGLOBIN 24.9 pg (29.0-33.0); MEAN CORPUSCULAR HGB CONC 28.5 g/dl (32.0-37.0); MEAN CORPUSCULAR VOLUME 87.2 fl (82.0-101.0); MEAN PLATELET VOLUME 12.1 fl (7.4-10.4); MONOCYTE # 1.1 10^3/ul (0.3-0.9); NEUTROPHIL # 9.6 10^3/ul (1.6-7.5); NEUTROPHILS % 72.2 % (39.0-77.0); PLATELET COUNT 251 10^3/UL (140-415); RED BLOOD COUNT 3.82 10^6/ul (4.20-5.40); RED CELL DISTRIBUTION WIDTH 18.7 % (11.5-14.5)
[2018-04-11 06:59] LABS: POSITIVE DIFF @See below
[2018-04-11 07:25] LABS: IRON 23 ug/dl (35-150)
[2018-04-11 07:28] LABS: MAGNESIUM 1.5 mg/dl (1.7-2.5)
[2018-04-11 07:28] LABS: PHOSPHORUS 4.2 mg/dl (2.5-4.9)
[2018-04-11 07:34] LABS: % IRON SATURATION 10 % SAT (22-52); TOTAL IRON BINDING CAPACITY 241 ug/dl (241-421)
[2018-04-11 07:52] LABS: FERRITIN 81.5 ng/ml (11.1-264.0)
[2018-04-11] MEDS: ALBUTEROL/IPRATROPIUM (NEB) 3 ML AMP HHN ×3 (08:10→23:32)
[2018-04-11] MEDS: AMLODIPINE 5 MG TAB PO (09:00)
[2018-04-11] MEDS: ERGOCALCIFEROL (8000 UNITS/ML PO SYG) PO (09:00)
[2018-04-11] MEDS: LISINOPRIL 5 MG TAB PO (09:00)
[2018-04-11] MEDS: FAMOTIDINE 20 MG TAB PO (09:08)
[2018-04-11] MEDS: MAGNESIUM OXIDE 400 MG TAB PO ×3 (09:08→22:29)
[2018-04-11] MEDS: CYANOCOBALAMIN 500 MCG TAB PO (09:08)
[2018-04-11] MEDS: LACTOBACILLUS RHAMNOSUS CAP PO ×3 (09:09→22:29)
[2018-04-11] MEDS: MULTIVITAMINS THERAPEUTIC TAB PO (09:09)
[2018-04-11] MEDS: OLOPATADINE 0.2% (ONCE A DAY) OPHTH DROP 2.5 ML BOTH EYES (09:10)
[2018-04-11] MEDS: ENOXAPARIN 40 MG/0.4 ML SYG SC (09:10)
[2018-04-11] MEDS: BUSPIRONE 5 MG TAB PO ×3 (09:13→22:27)
[2018-04-11] MEDS: SERTRALINE 100 MG TAB PO (09:14)
[2018-04-11] MEDS: OXCARBAZEPINE 300 MG TAB PO ×3 (09:14→22:30)
[2018-04-11 10:42] LABS: ANION GAP 11 (8-16); BLOOD UREA NITROGEN 22 mg/dl (7-20); CALCIUM 9.1 mg/dl (8.4-10.2); CARBON DIOXIDE 38 mmol/L (21-31); CHLORIDE 102 mmol/L (97-110); CREATININE 0.84 mg/dl (0.44-1.00); GLUCOSE 84 mg/dl (70-220); POTASSIUM 3.7 mmol/L (3.5-5.1); SODIUM 147 mmol/L (135-144)
[2018-04-11] MEDS: MAGNESIUM SULFATE 2 GM/50 ML 50 ML IVPB (15:05)
[2018-04-11] MEDS: BALSAM PERU/CASTOR OIL 60 GM TUBE TOP ×3 (15:06→23:00)
[2018-04-11] MEDS: ATORVASTATIN 20 MG TAB PO ×2 (21:00→22:29)
[2018-04-11] MEDS: KETOROLAC 30 MG INJ IV (23:08)
[2018-04-11] MEDS: DIAZEPAM 5 MG TAB PO (23:11)
[2018-04-12 05:38] LABS: ADD MAN DIFF? NO
[2018-04-12 05:44] LABS: WHITE BLOOD COUNT 12.8 10^3/ul (4.8-10.8)
[2018-04-12 05:44] LABS: BASOPHILS % 0.1 % (0.0-2.0); EOSINOPHILS # 0.6 10^3/ul (0.0-0.5); EOSINOPHILS % 4.5 % (0.0-7.0); HEMATOCRIT 33.7 % (37.0-47.0); HEMOGLOBIN 9.8 g/dl (12.0-16.0); LYMPHOCYTES # 1.9 10^3/ul (0.8-2.9); LYMPHOCYTES % 14.9 % (15.0-51.0); MEAN CORPUSCULAR HEMOGLOBIN 25.3 pg (29.0-33.0); MEAN CORPUSCULAR HGB CONC 29.1 g/dl (32.0-37.0); MEAN CORPUSCULAR VOLUME 87.1 fl (82.0-101.0); MEAN PLATELET VOLUME 11.7 fl (7.4-10.4); MONOCYTE # 0.8 10^3/ul (0.3-0.9); MONOCYTES % 6.4 % (0.0-11.0); NEUTROPHIL # 9.4 10^3/ul (1.6-7.5); NEUTROPHILS % 73.5 % (39.0-77.0); PLATELET COUNT 226 10^3/UL (140-415); RED BLOOD COUNT 3.87 10^6/ul (4.20-5.40); RED CELL DISTRIBUTION WIDTH 18.4 % (11.5-14.5)
[2018-04-12 06:06] LABS: ANION GAP 9 (8-16); BLOOD UREA NITROGEN 21 mg/dl (7-20); CALCIUM 8.8 mg/dl (8.4-10.2); CARBON DIOXIDE 39 mmol/L (21-31); CHLORIDE 103 mmol/L (97-110); CREATININE 0.85 mg/dl (0.44-1.00); GLUCOSE 84 mg/dl (70-220); POTASSIUM 3.3 mmol/L (3.5-5.1); SODIUM 148 mmol/L (135-144)
[2018-04-12 06:12] LABS: PHOSPHORUS 4.3 mg/dl (2.5-4.9)
[2018-04-12] MEDS: ALBUTEROL/IPRATROPIUM (NEB) 3 ML AMP HHN ×2 (07:48→17:38)
[2018-04-12] MEDS: HYDROmorphONE 0.5 MG/0.5 ML SYG IV ×2 (08:24→11:50)
[2018-04-12] MEDS: LACTOBACILLUS RHAMNOSUS CAP PO ×2 (09:00→21:40)
[2018-04-12] MEDS: ENOXAPARIN 40 MG/0.4 ML SYG SC (09:00)
[2018-04-12] MEDS: MAGNESIUM OXIDE 400 MG TAB PO ×2 (09:00→21:40)
[2018-04-12] MEDS: MULTIVITAMINS THERAPEUTIC TAB PO (09:00)
[2018-04-12] MEDS: AMLODIPINE 5 MG TAB PO (09:00)
[2018-04-12] MEDS: LISINOPRIL 5 MG TAB PO (09:00)
[2018-04-12] MEDS: OLOPATADINE 0.2% (ONCE A DAY) OPHTH DROP 2.5 ML BOTH EYES (09:00)
[2018-04-12] MEDS: OXCARBAZEPINE 300 MG TAB PO ×2 (09:00→21:40)
[2018-04-12] MEDS: FAMOTIDINE 20 MG TAB PO (09:00)
[2018-04-12] MEDS: CYANOCOBALAMIN 500 MCG TAB PO (09:00)
[2018-04-12] MEDS: ERGOCALCIFEROL (8000 UNITS/ML PO SYG) PO (09:00)
[2018-04-12] MEDS: FUROSEMIDE 20 MG INJ IV (10:04)
[2018-04-12] MEDS: BUSPIRONE 5 MG TAB PO ×2 (10:17→21:58)
[2018-04-12] MEDS: SERTRALINE 100 MG TAB PO (10:20)
[2018-04-12] MEDS: LORAZEPAM 2 MG INJ IV (10:23)
[2018-04-12] MEDS: BALSAM PERU/CASTOR OIL 60 GM TUBE TOP ×2 (11:42→21:41)
[2018-04-12] MEDS: POTASSIUM CHLORIDE (SR) 10 MEQ TAB PO (13:25)
[2018-04-12 14:17] LABS: ANA SCREEN NEGATIVE (NEGATIVE)
[2018-04-12] MEDS: HYDROmorphONE 2 MG TAB PO ×2 (17:59→21:41)
[2018-04-12] MEDS: ATORVASTATIN 20 MG TAB PO (21:40)
[2018-04-12] MEDS: traZODone 50 MG TAB PO (23:05)
[2018-04-13] MEDS: ALBUTEROL/IPRATROPIUM (NEB) 3 ML AMP HHN ×4 (00:06→16:00)
[2018-04-13] MEDS: HYDROmorphONE 2 MG TAB PO ×4 (02:28→22:15)
[2018-04-13] MEDS: CYANOCOBALAMIN 500 MCG TAB PO (09:00)
[2018-04-13] MEDS: LACTOBACILLUS RHAMNOSUS CAP PO ×2 (09:00→21:51)
[2018-04-13] MEDS: OXCARBAZEPINE 300 MG TAB PO ×2 (09:00→21:50)
[2018-04-13] MEDS: MAGNESIUM OXIDE 400 MG TAB PO ×2 (09:00→21:52)
[2018-04-13] MEDS: ERGOCALCIFEROL (8000 UNITS/ML PO SYG) PO (09:00)
[2018-04-13] MEDS: ENOXAPARIN 40 MG/0.4 ML SYG SC (09:00)
[2018-04-13] MEDS: MULTIVITAMINS THERAPEUTIC TAB PO (09:00)
[2018-04-13] MEDS: OLOPATADINE 0.2% (ONCE A DAY) OPHTH DROP 2.5 ML BOTH EYES (10:40)
[2018-04-13] MEDS: BUSPIRONE 5 MG TAB PO ×2 (10:41→21:51)
[2018-04-13] MEDS: SERTRALINE 100 MG TAB PO (10:41)
[2018-04-13] MEDS: FAMOTIDINE 20 MG TAB PO (10:47)
[2018-04-13] MEDS: LISINOPRIL 5 MG TAB PO (10:50)
[2018-04-13] MEDS: AMLODIPINE 5 MG TAB PO (10:51)
[2018-04-13] MEDS: LORAZEPAM 2 MG INJ IV (13:01)
[2018-04-13] MEDS: BALSAM PERU/CASTOR OIL 60 GM TUBE TOP ×2 (13:05→22:00)
[2018-04-13] MEDS: ATORVASTATIN 20 MG TAB PO (21:50)
[2018-04-14] MEDS: ALBUTEROL/IPRATROPIUM (NEB) 3 ML AMP HHN ×3 (00:59→15:15)
[2018-04-14] MEDS: LORAZEPAM 2 MG INJ IV (01:58)
[2018-04-14 05:52] LABS: ADD MAN DIFF? NO
[2018-04-14 05:55] LABS: ABNORMAL IP MESSAGE 1; BASOPHILS % 0.2 % (0.0-2.0); EOSINOPHILS # 0.3 10^3/ul (0.0-0.5); EOSINOPHILS % 2.8 % (0.0-7.0); HEMATOCRIT 32.1 % (37.0-47.0); HEMOGLOBIN 9.2 g/dl (12.0-16.0); LYMPHOCYTES # 1.7 10^3/ul (0.8-2.9); MEAN CORPUSCULAR HEMOGLOBIN 25.2 pg (29.0-33.0); MEAN CORPUSCULAR HGB CONC 28.7 g/dl (32.0-37.0); MEAN CORPUSCULAR VOLUME 87.9 fl (82.0-101.0); MEAN PLATELET VOLUME 11.9 fl (7.4-10.4); MONOCYTE # 0.7 10^3/ul (0.3-0.9); MONOCYTES % 6.8 % (0.0-11.0); NEUTROPHIL # 7.8 10^3/ul (1.6-7.5); NEUTROPHILS % 73.8 % (39.0-77.0); PLATELET COUNT 202 10^3/UL (140-415); RED BLOOD COUNT 3.65 10^6/ul (4.20-5.40)
[2018-04-14 05:55] LABS: WHITE BLOOD COUNT 10.5 10^3/ul (4.8-10.8)
[2018-04-14 05:59] LABS: POSITIVE DIFF @See below
[2018-04-14 06:20] LABS: ANION GAP 9 (8-16); BLOOD UREA NITROGEN 17 mg/dl (7-20); CALCIUM 8.4 mg/dl (8.4-10.2); CARBON DIOXIDE 40 mmol/L (21-31); CHLORIDE 102 mmol/L (97-110); CREATININE 0.76 mg/dl (0.44-1.00); GLUCOSE 93 mg/dl (70-220); POTASSIUM 3.9 mmol/L (3.5-5.1); SODIUM 147 mmol/L (135-144)
[2018-04-14 06:31] LABS: PHOSPHORUS 3.2 mg/dl (2.5-4.9)
[2018-04-14 06:31] LABS: MAGNESIUM 1.7 mg/dl (1.7-2.5)
[2018-04-14] MEDS: OLOPATADINE 0.2% (ONCE A DAY) OPHTH DROP 2.5 ML BOTH EYES ×2 (09:00→09:37)
[2018-04-14] MEDS: LACTOBACILLUS RHAMNOSUS CAP PO ×2 (09:37→22:09)
[2018-04-14] MEDS: BUSPIRONE 5 MG TAB PO ×2 (09:37→22:09)
[2018-04-14] MEDS: OXCARBAZEPINE 300 MG TAB PO ×2 (09:38→22:09)
[2018-04-14] MEDS: MAGNESIUM OXIDE 400 MG TAB PO ×2 (09:38→22:09)
[2018-04-14] MEDS: SERTRALINE 100 MG TAB PO (09:38)
[2018-04-14] MEDS: MULTIVITAMINS THERAPEUTIC TAB PO (09:38)
[2018-04-14] MEDS: FAMOTIDINE 20 MG TAB PO (09:38)
[2018-04-14] MEDS: CYANOCOBALAMIN 500 MCG TAB PO (09:38)
[2018-04-14] MEDS: AMLODIPINE 5 MG TAB PO (09:39)
[2018-04-14] MEDS: LISINOPRIL 5 MG TAB PO (09:39)
[2018-04-14] MEDS: ENOXAPARIN 40 MG/0.4 ML SYG SC (09:40)
[2018-04-14] MEDS: HYDROmorphONE 2 MG TAB PO ×3 (10:20→22:08)
[2018-04-14] MEDS: BALSAM PERU/CASTOR OIL 60 GM TUBE TOP ×2 (10:53→22:15)
[2018-04-14] MEDS: CEPASTAT LOZENGE MT (12:25)
[2018-04-14] MEDS: ERGOCALCIFEROL (8000 UNITS/ML PO SYG) PO (13:19)
[2018-04-14] MEDS: SOD CHLORIDE 0.9% 500 ML IV (16:38)
[2018-04-14] MEDS: ATORVASTATIN 20 MG TAB PO (22:09)
[2018-04-15] MEDS: ALBUTEROL/IPRATROPIUM (NEB) 3 ML AMP HHN ×3 (01:08→15:51)
[2018-04-15] MEDS: HYDROmorphONE 2 MG TAB PO ×4 (06:32→22:17)
[2018-04-15] MEDS: CYANOCOBALAMIN 500 MCG TAB PO (09:20)
[2018-04-15] MEDS: MAGNESIUM OXIDE 400 MG TAB PO ×2 (09:20→22:13)
[2018-04-15] MEDS: BUSPIRONE 5 MG TAB PO ×2 (09:20→22:12)
[2018-04-15] MEDS: AMLODIPINE 5 MG TAB PO (09:21)
[2018-04-15] MEDS: OXCARBAZEPINE 300 MG TAB PO ×2 (09:21→21:00)
[2018-04-15] MEDS: FAMOTIDINE 20 MG TAB PO (09:22)
[2018-04-15] MEDS: SERTRALINE 100 MG TAB PO (09:22)
[2018-04-15] MEDS: LISINOPRIL 5 MG TAB PO (09:23)
[2018-04-15] MEDS: MULTIVITAMINS THERAPEUTIC TAB PO (09:23)
[2018-04-15] MEDS: LACTOBACILLUS RHAMNOSUS CAP PO ×2 (09:23→22:11)
[2018-04-15] MEDS: ENOXAPARIN 40 MG/0.4 ML SYG SC (09:24)
[2018-04-15] MEDS: ERGOCALCIFEROL (8000 UNITS/ML PO SYG) PO (09:48)
[2018-04-15] MEDS: OLOPATADINE 0.2% (ONCE A DAY) OPHTH DROP 2.5 ML BOTH EYES (09:48)
[2018-04-15] MEDS: BALSAM PERU/CASTOR OIL 60 GM TUBE TOP ×2 (09:53→22:20)
[2018-04-15] MEDS: ATORVASTATIN 20 MG TAB PO (22:17)
[2018-04-16] MEDS: ALBUTEROL/IPRATROPIUM (NEB) 3 ML AMP HHN ×3 (00:11→16:00)
[2018-04-16] MEDS: SOD CHLORIDE 0.9% 500 ML IV (06:04)
[2018-04-16] MEDS: HYDROmorphONE 2 MG TAB PO ×2 (07:35→12:23)
[2018-04-16] MEDS: ENOXAPARIN 40 MG/0.4 ML SYG SC (08:33)
[2018-04-16] MEDS: CYANOCOBALAMIN 500 MCG TAB PO (08:35)
[2018-04-16] MEDS: LACTOBACILLUS RHAMNOSUS CAP PO (08:36)
[2018-04-16] MEDS: OXCARBAZEPINE 300 MG TAB PO (08:36)
[2018-04-16] MEDS: MAGNESIUM OXIDE 400 MG TAB PO (08:36)
[2018-04-16] MEDS: SERTRALINE 100 MG TAB PO (08:36)
[2018-04-16] MEDS: BUSPIRONE 5 MG TAB PO (08:36)
[2018-04-16] MEDS: MULTIVITAMINS THERAPEUTIC TAB PO (08:36)
[2018-04-16] MEDS: FAMOTIDINE 20 MG TAB PO (08:36)
[2018-04-16] MEDS: OLOPATADINE 0.2% (ONCE A DAY) OPHTH DROP 2.5 ML BOTH EYES (08:37)
[2018-04-16] MEDS: BALSAM PERU/CASTOR OIL 60 GM TUBE TOP (08:41)
[2018-04-16] MEDS: ERGOCALCIFEROL (8000 UNITS/ML PO SYG) PO (08:43)
[2018-04-16] MEDS: AMLODIPINE 5 MG TAB PO (09:00)
[2018-04-16] MEDS: LISINOPRIL 5 MG TAB PO (09:00)
[2018-04-16] MEDS: CEPASTAT LOZENGE MT ×2 (10:38→12:27)
[2018-04-16 12:22] LABS: ADD MAN DIFF? NO
[2018-04-16 12:27] LABS: ABNORMAL IP MESSAGE 1; BASOPHILS % 0.2 % (0.0-2.0); EOSINOPHILS # 0.2 10^3/ul (0.0-0.5); EOSINOPHILS % 2.7 % (0.0-7.0); HEMOGLOBIN 9.2 g/dl (12.0-16.0); LYMPHOCYTES # 1.6 10^3/ul (0.8-2.9); MEAN CORPUSCULAR HEMOGLOBIN 25.5 pg (29.0-33.0); MEAN CORPUSCULAR HGB CONC 28.8 g/dl (32.0-37.0); MEAN CORPUSCULAR VOLUME 88.6 fl (82.0-101.0); MEAN PLATELET VOLUME 11.3 fl (7.4-10.4); MONOCYTE # 0.7 10^3/ul (0.3-0.9); MONOCYTES % 8.2 % (0.0-11.0); NEUTROPHIL # 6.2 10^3/ul (1.6-7.5); NEUTROPHILS % 70.4 % (39.0-77.0); PLATELET COUNT 194 10^3/UL (140-415); RED BLOOD COUNT 3.61 10^6/ul (4.20-5.40); RED CELL DISTRIBUTION WIDTH 17.5 % (11.5-14.5)
[2018-04-16 12:27] LABS: WHITE BLOOD COUNT 8.9 10^3/ul (4.8-10.8)
[2018-04-16 12:28] LABS: POSITIVE DIFF @See below
[2018-04-16 12:45] LABS: ANION GAP 14 (8-16); BLOOD UREA NITROGEN 13 mg/dl (7-20); CALCIUM 8.6 mg/dl (8.4-10.2); CARBON DIOXIDE 33 mmol/L (21-31); CHLORIDE 105 mmol/L (97-110); CREATININE 0.81 mg/dl (0.44-1.00); GLUCOSE 85 mg/dl (70-220); POTASSIUM 4.7 mmol/L (3.5-5.1); SODIUM 147 mmol/L (135-144)
== END 2018-04-16 18:11 | DRG 871 ==
LOC: PP2 08:15 → E/R 07:14
DX: A41.9 Sepsis, unspecified organism (principal); J18.9 Pneumonia, unspecified organism; G92 Toxic encephalopathy; J96.01 Acute respiratory failure with hypoxia; J96.02 Acute respiratory failure with hypercapnia; I50.33 Acute on chronic diastolic (congestive) heart failure; J44.1 Chronic obstructive pulmonary disease with (acute) exacerbation; I11.0 Hypertensive heart disease with heart failure; I27.20 Pulmonary hypertension, unspecified; I16.0 Hypertensive urgency; D64.9 Anemia, unspecified; Y95 Nosocomial condition; F32.9 Major depressive disorder, single episode, unspecified
CPT/HCPCS: 36415; 36600; 71045; 71260; 80048; 80053; 80061; 80202; 81001; 82728; 82803; 82962; 83036; 83540; 83605; 83735; 84100; 84443; 84484; 85025; 85610; 85730; 86038; 86430; 87040; 87075; 87081; 87086; 92610; 93005; 93306; 94640; 94660; 94664; 96372; 96374; 96375; 96376; 97110; 97116; 97162; 97530; 99291-25

== ENCOUNTER 2018-04-18 10:22 | Inpatient (IN) | payer MEDICARE, MEDICAID ==
[2018-04-18 10:53] LABS: ADD MAN DIFF? NO
[2018-04-18 11:01] LABS: ALANINE AMINOTRANSFERASE 20 IU/L (13-69); ALBUMIN 3.7 g/dl (3.3-4.9); ALKALINE PHOSPHATASE 124 IU/L (42-121); ANION GAP 18 (8-16); ASPARTATE AMINO TRANSFERASE 39 IU/L (15-46); BILIRUBIN,INDIRECT 0.3 mg/dl (0-1.1); BILIRUBIN,TOTAL 0.3 mg/dl (0.2-1.3); BLOOD UREA NITROGEN 11 mg/dl (7-20); CALCIUM 9.5 mg/dl (8.4-10.2); CARBON DIOXIDE 30 mmol/L (21-31); CHLORIDE 104 mmol/L (97-110); GLUCOSE 113 mg/dl (70-220); POTASSIUM 4.6 mmol/L (3.5-5.1); SODIUM 147 mmol/L (135-144); TOTAL PROTEIN 7.8 g/dl (6.1-8.1)
[2018-04-18 11:06] LABS: INR 0.96; PROTIME 12.9 Sec (11.9-14.9)
[2018-04-18 11:07] LABS: PARTIAL THROMBOPLASTIN TIME 36.3 Sec (25.0-35.0)
[2018-04-18 11:13] LABS: TROPONIN-I 0.013 ng/ml (0.000-0.120)
[2018-04-18 11:16] LABS: ABNORMAL IP MESSAGE 1; BASOPHILS % 0.3 % (0.0-2.0); EOSINOPHILS # 0.3 10^3/ul (0.0-0.5); EOSINOPHILS % 1.9 % (0.0-7.0); HEMATOCRIT 38.4 % (37.0-47.0); LYMPHOCYTES # 5.6 10^3/ul (0.8-2.9); LYMPHOCYTES % 36.7 % (15.0-51.0); MEAN CORPUSCULAR HEMOGLOBIN 25.2 pg (29.0-33.0); MEAN CORPUSCULAR HGB CONC 28.6 g/dl (32.0-37.0); MEAN CORPUSCULAR VOLUME 87.9 fl (82.0-101.0); MEAN PLATELET VOLUME 12.6 fl (7.4-10.4); MONOCYTE # 0.6 10^3/ul (0.3-0.9); MONOCYTES % 3.7 % (0.0-11.0); NEUTROPHIL # 8.6 10^3/ul (1.6-7.5); NEUTROPHILS % 56.5 % (39.0-77.0); PLATELET COUNT 294 10^3/UL (140-415); POSITIVE DIFF @See below; RED BLOOD COUNT 4.37 10^6/ul (4.20-5.40); RED CELL DISTRIBUTION WIDTH 16.8 % (11.5-14.5)
[2018-04-18 11:16] LABS: WHITE BLOOD COUNT 15.1 10^3/ul (4.8-10.8)
[2018-04-18] MEDS: PIPER-TAZO 3.375 GM IV (PMX) 100 ML IVPB (11:38)
[2018-04-18 11:39] LABS: AADO2 Arterial 217.6 mmHg (7.0-24.0); Allen Test ACCEPTAB; Arterial Base Excess 4.3 mmol/L (-3.0-3); Arterial Blood Gas Oxygen Sat 94.1 mmHG (95.0-98.0); Arterial COHb 0.4 % (0.0-3.0); Arterial Fraction of Oxyhgb 93.5 % (93.0-99.0); Arterial HCO3 30.9 mmol/L (22.0-26.0); Arterial MetHb 0.2 % (0.0-1.5); Arterial Total Hemglobin 11.5 g/dl (12.0-18.0); Arterial pCO2 55.8 mmhg (35-45); Blood Gas IEPAP 18/5; Blood Gas PS 13; MODE MASK - BIPAP; Site Right Radial
[2018-04-18] MEDS: ALBUTEROL 0.5% (NEB) 2.5 MG/0.5 ML AMP INH ×2 (11:49→15:42)
[2018-04-18 12:19] LABS: LACTIC ACID 1.5 mmol/L (0.5-2.0)
[2018-04-18] MEDS: VANCOMYCIN 1 GM (PMX) 250 ML IVPB (12:19)
[2018-04-18] MEDS: SOD CHLORIDE 0.9% 1,000 ML IV ×3 (12:20→23:40)
[2018-04-18 13:03] LABS: ANISOCYTOSIS 1+ (0-0); BAND NEUTROPHILS #M 0.1 10^3/ul (0.0-0.6); BAND NEUTROPHILS % (M) 1 % (0-4); EOSINOPHILS % (M) 5 % (0-7); GIANT THROMBO% (M) 1 % (0-0); LYMPHOCYTES #M 4.3 10^3/ul (0.8-2.9); LYMPHOCYTES % (M) 29 % (15-51); MICROCYTOSIS 1+ (0-0); MONOCYTE #M 0.4 10^3/ul (0.3-0.9); MONOCYTES % (M) 3 % (0-11); PLATELET ESTIMATE NORMAL; POIKILOCYTOSIS 3+ (0-0); POLYCHROMASIA 1+ (0-0); REACTIVE LYMPHOCYTES #M 0.9 10^3/ul (0.0-0.0); REACTIVE LYMPHOCYTES% (M) 6 % (0-0); SEG NEUT #M 8.6 10^3/ul (1.6-7.5); SEGMENTED NEUTROPHILS (M) % 57 % (39-77); SMUDGE%M 10 % (0-0)
[2018-04-18] MEDS ORDERED: NORepinephrine 8MG/250 ML (PMX 250 ML IV (14:00)
[2018-04-18] MEDS: LIDOCAINE 1% (MPF) 5 ML VIAL SC (14:00)
[2018-04-18 15:17] LABS: ADD UMIC NO; UR ASCORBIC ACID NEGATIVE (NEGATIVE); UR BILIRUBIN (Dip) NEGATIVE (NEGATIVE); UR BLOOD (Dip) NEGATIVE (NEGATIVE); UR CLARITY CLEAR (CLEAR); UR COLOR STRAW (YELLOW); UR GLUCOSE (Dip) NEGATIVE (NEGATIVE); UR KETONES (Dip) TRACE mg/dL (NEGATIVE); UR LEUKOCYTE ESTERASE (Dip) NEGATIVE Leu/ul (NEGATIVE); UR NITRITE (Dip) NEGATIVE (NEGATIVE); UR SPECIFIC GRAVITY (Dip) 1.011 (1.003-1.030); UR TOTAL PROTEIN (Dip) NEGATIVE (NEGATIVE); UR UROBILINOGEN (Dip) NEGATIVE (NEGATIVE)
[2018-04-18] MEDS ORDERED: ACETAMINOPHEN 325 MG TAB PO ×2 (15:30→16:00)
[2018-04-18] MEDS ORDERED: ONDANSETRON 4 MG INJ IV ×2 (15:30→16:00)
[2018-04-18] MEDS: morphine 4 MG/ML VIAL IV (15:31)
[2018-04-18] MEDS: ONDANSETRON 4 MG INJ IV (15:31)
[2018-04-18 15:53] LABS: LACTIC ACID 2.9 mmol/L (0.5-2.0)
[2018-04-18] MEDS ORDERED: DOCUSATE SODIUM 100 MG CAP PO (16:00)
[2018-04-18] MEDS ORDERED: NITROGLYCERIN (SL) 0.4 MG TAB SL (16:00)
[2018-04-18] MEDS ORDERED: morphine 2 MG INJ IV (16:00)
[2018-04-18] MEDS ORDERED: hydrALAzine 20 MG INJ IV (16:00)
[2018-04-18] MEDS ORDERED: NA PHOSPHATE/BIPHOS 133 ML ENEMA PR (16:00)
[2018-04-18] MEDS ORDERED: MAGNESIUM HYDROXIDE 30ML CUP PO (16:00)
[2018-04-18] MEDS ORDERED: NACL 0.9% 3 ML SYG IV (16:00)
[2018-04-18] MEDS ORDERED: VANCOMYCIN IV PER PHARMACY XX (16:00)
[2018-04-18 16:35] LABS: HEMOGLOBIN A1C 5.4 % (0-5.9)
[2018-04-18] MEDS: SOD CHLORIDE 0.9% 500 ML IV (17:10)
[2018-04-18] MEDS: NORepinephrine 32 MG in DEXTROSE 5% 218 ML IV (17:10)
[2018-04-18] MEDS: HYDROmorphONE 0.5 MG/0.5 ML SYG IV ×2 (18:40→22:27)
[2018-04-18 20:27] LABS: LACTIC ACID 4.1 mmol/L (0.5-2.0)
[2018-04-18] MEDS: VANCOMYCIN 1 GM in 250 ML IVPB (20:35)
[2018-04-18] MEDS: ALBUTEROL/IPRATROPIUM (NEB) 3 ML AMP HHN (20:56)
[2018-04-18] MEDS ORDERED: HEPARIN 5,000 UNIT/0.5 ML VIAL SC (21:00)
[2018-04-18] MEDS: MAGNESIUM OXIDE 400 MG TAB PO (21:00)
[2018-04-18] MEDS: LACTOBACILLUS RHAMNOSUS CAP PO (21:00)
[2018-04-18] MEDS: SOD CHLORIDE 0.9% 250 ML IV (21:00)
[2018-04-18] MEDS: OXCARBAZEPINE 150 MG TAB PO (21:00)
[2018-04-18] MEDS ORDERED: SALMETEROL/FLUTICASONE 250/50 INHA INH (21:00)
[2018-04-18] MEDS: DEXTROSE 5%-0.45% NACL 1,000 ML IV (22:25)
[2018-04-18] MEDS: MEROPENEM 1 GM/50ML(PMX) 50 ML IVPB ×2 (22:27→22:30)
[2018-04-18 23:25] LABS: LACTIC ACID 1.7 mmol/L (0.5-2.0)
[2018-04-18 23:36] LABS: INR 1.08; PROTIME 14.1 Sec (11.9-14.9); PT RATIO 1.1
[2018-04-18 23:37] LABS: PARTIAL THROMBOPLASTIN TIME 42.4 Sec (25.0-35.0)
[2018-04-19] MEDS: ALBUTEROL/IPRATROPIUM (NEB) 3 ML AMP HHN ×6 (00:28→21:00)
[2018-04-19 01:43] LABS: LACTIC ACID 1.3 mmol/L (0.5-2.0)
[2018-04-19 05:21] LABS: ADD MAN DIFF? NO
[2018-04-19 05:27] LABS: WHITE BLOOD COUNT 14.3 10^3/ul (4.8-10.8)
[2018-04-19 05:27] LABS: BASOPHILS % 0.3 % (0.0-2.0); EOSINOPHILS # 0.1 10^3/ul (0.0-0.5); EOSINOPHILS % 0.6 % (0.0-7.0); HEMATOCRIT 30.2 % (37.0-47.0); LYMPHOCYTES # 1.2 10^3/ul (0.8-2.9); LYMPHOCYTES % 8.7 % (15.0-51.0); MEAN CORPUSCULAR HEMOGLOBIN 26.1 pg (29.0-33.0); MEAN CORPUSCULAR HGB CONC 29.8 g/dl (32.0-37.0); MEAN CORPUSCULAR VOLUME 87.5 fl (82.0-101.0); MEAN PLATELET VOLUME 11.7 fl (7.4-10.4); MONOCYTE # 0.8 10^3/ul (0.3-0.9); MONOCYTES % 5.8 % (0.0-11.0); PLATELET COUNT 253 10^3/UL (140-415); RED BLOOD COUNT 3.45 10^6/ul (4.20-5.40)
[2018-04-19 05:35] LABS: HEMOGLOBIN A1C 5.5 % (0-5.9)
[2018-04-19] MEDS: MEROPENEM 1 GM/50ML(PMX) 50 ML IVPB ×3 (06:05→23:12)
[2018-04-19 06:06] LABS: LACTIC ACID 0.9 mmol/L (0.5-2.0)
[2018-04-19 06:12] LABS: HDL CHOLESTEROL 47 mg/dl (33-92); LDL CHOLESTEROL,CALCULATED 79 mg/dl; TRIGLYCERIDES 85 mg/dl (0-149)
[2018-04-19 06:12] LABS: CHOLESTEROL 143 mg/dl (100-200)
[2018-04-19 06:17] LABS: ANION GAP 11 (8-16); BLOOD UREA NITROGEN 9 mg/dl (7-20); CALCIUM 8.2 mg/dl (8.4-10.2); CARBON DIOXIDE 32 mmol/L (21-31); CHLORIDE 109 mmol/L (97-110); CREATININE 0.77 mg/dl (0.44-1.00); GLUCOSE 140 mg/dl (70-220); MAGNESIUM 1.5 mg/dl (1.7-2.5); PHOSPHORUS 3.2 mg/dl (2.5-4.9); SODIUM 148 mmol/L (135-144)
[2018-04-19] MEDS: HYDROmorphONE 0.5 MG/0.5 ML SYG IV ×4 (08:26→21:08)
[2018-04-19] MEDS: OLOPATADINE 0.2% (ONCE A DAY) OPHTH DROP 2.5 ML BOTH EYES (08:26)
[2018-04-19 08:46] LABS: LACTIC ACID 0.8 mmol/L (0.5-2.0)
[2018-04-19] MEDS ORDERED: ENOXAPARIN 40 MG/0.4 ML SYG SC (09:00)
[2018-04-19] MEDS ORDERED: FAMOTIDINE 20 MG TAB PO (09:00)
[2018-04-19] MEDS: FLUTICASONE/VILANTEROL 100-25 INH (09:00)
[2018-04-19] MEDS: DEXTROSE 5% 1,000 ML IV (10:47)
[2018-04-19] MEDS: HYDROCODONE/APAP (5/325) TAB PO (10:49)
[2018-04-19] MEDS: MAGNESIUM SULFATE 2 GM/50 ML 50 ML IVPB (10:49)
[2018-04-19] MEDS: SERTRALINE 100 MG TAB PO (10:50)
[2018-04-19] MEDS: LACTOBACILLUS RHAMNOSUS CAP PO ×2 (10:50→20:54)
[2018-04-19] MEDS: MAGNESIUM OXIDE 400 MG TAB PO ×2 (10:50→20:54)
[2018-04-19] MEDS: OXCARBAZEPINE 150 MG TAB PO ×2 (10:50→20:54)
[2018-04-19] MEDS: MULTIVITAMINS THERAPEUTIC TAB PO (10:51)
[2018-04-19] MEDS: FAMOTIDINE 20 MG INJ IV (10:51)
[2018-04-19 13:00] LABS: LACTIC ACID 0.8 mmol/L (0.5-2.0)
[2018-04-19] MEDS: ERGOCALCIFEROL (8000 UNITS/ML PO SYG) PO (13:27)
[2018-04-19] MEDS: VANCOMYCIN 1 GM in 250 ML IVPB (17:28)
[2018-04-20] MEDS: ALBUTEROL/IPRATROPIUM (NEB) 3 ML AMP HHN ×6 (01:00→20:27)
[2018-04-20] MEDS: HYDROmorphONE 0.5 MG/0.5 ML SYG IV ×4 (05:00→21:46)
[2018-04-20] MEDS: DEXTROSE 5% 1,000 ML IV ×2 (05:06→12:34)
[2018-04-20] MEDS: MEROPENEM 1 GM/50ML(PMX) 50 ML IVPB ×3 (05:36→21:48)
[2018-04-20 05:39] LABS: ADD MAN DIFF? NO
[2018-04-20 05:47] LABS: ABNORMAL IP MESSAGE 1; BASOPHILS % 0.3 % (0.0-2.0); EOSINOPHILS # 0.2 10^3/ul (0.0-0.5); EOSINOPHILS % 1.7 % (0.0-7.0); HEMATOCRIT 29.1 % (37.0-47.0); HEMOGLOBIN 8.4 g/dl (12.0-16.0); LYMPHOCYTES % 9.8 % (15.0-51.0); MEAN CORPUSCULAR HEMOGLOBIN 25.5 pg (29.0-33.0); MEAN CORPUSCULAR HGB CONC 28.9 g/dl (32.0-37.0); MEAN CORPUSCULAR VOLUME 88.4 fl (82.0-101.0); MEAN PLATELET VOLUME 10.8 fl (7.4-10.4); MONOCYTE # 0.7 10^3/ul (0.3-0.9); MONOCYTES % 6.6 % (0.0-11.0); NEUTROPHIL # 8.2 10^3/ul (1.6-7.5); NEUTROPHILS % 81.1 % (39.0-77.0); PLATELET COUNT 219 10^3/UL (140-415); RED BLOOD COUNT 3.29 10^6/ul (4.20-5.40); RED CELL DISTRIBUTION WIDTH 17.1 % (11.5-14.5)
[2018-04-20 05:47] LABS: WHITE BLOOD COUNT 10.1 10^3/ul (4.8-10.8)
[2018-04-20 06:24] LABS: POSITIVE DIFF @See below
[2018-04-20 06:29] LABS: ANION GAP 8 (8-16); BLOOD UREA NITROGEN 4 mg/dl (7-20); CALCIUM 8.8 mg/dl (8.4-10.2); CARBON DIOXIDE 37 mmol/L (21-31); CHLORIDE 105 mmol/L (97-110); CREATININE 0.74 mg/dl (0.44-1.00); GLUCOSE 92 mg/dl (70-220); POTASSIUM 3.9 mmol/L (3.5-5.1); SODIUM 146 mmol/L (135-144)
[2018-04-20] MEDS: OXCARBAZEPINE 150 MG TAB PO ×2 (08:15→21:42)
[2018-04-20] MEDS: MULTIVITAMINS THERAPEUTIC TAB PO (08:15)
[2018-04-20] MEDS: ERGOCALCIFEROL (8000 UNITS/ML PO SYG) PO (08:15)
[2018-04-20] MEDS: OLOPATADINE 0.2% (ONCE A DAY) OPHTH DROP 2.5 ML BOTH EYES (08:15)
[2018-04-20] MEDS: MAGNESIUM OXIDE 400 MG TAB PO ×2 (08:15→20:14)
[2018-04-20] MEDS: SERTRALINE 100 MG TAB PO (08:15)
[2018-04-20] MEDS: LACTOBACILLUS RHAMNOSUS CAP PO ×2 (08:15→21:42)
[2018-04-20] MEDS: FAMOTIDINE 20 MG INJ IV (08:21)
[2018-04-20] MEDS: CEPASTAT LOZENGE MT (08:28)
[2018-04-20] MEDS: FLUTICASONE/VILANTEROL 100-25 INH (08:34)
[2018-04-20] MEDS: LIDOCAINE 2% VISC 15 ML CUP PO (08:34)
[2018-04-20 08:38] LABS: IRON 26 ug/dl (35-150)
[2018-04-20 08:48] LABS: % IRON SATURATION 13 % SAT (22-52); TOTAL IRON BINDING CAPACITY 200 ug/dl (241-421)
[2018-04-20 10:39] LABS: AADO2 Arterial 59.2 mmHg (7.0-24.0); Allen Test ACCEPTAB; Arterial Base Excess 6.2 mmol/L (-3.0-3); Arterial Blood Gas Oxygen Sat 98.5 mmHG (95.0-98.0); Arterial COHb 0.6 % (0.0-3.0); Arterial Fraction of Oxyhgb 97.7 % (93.0-99.0); Arterial HCO3 32.6 mmol/L (22.0-26.0); Arterial MetHb 0.2 % (0.0-1.5); Arterial Total Hemglobin 8.8 g/dl (12.0-18.0); Arterial pCO2 58.4 mmhg (35-45); MODE NASAL CANNULA; Site Right Radial
[2018-04-20] MEDS: VANCOMYCIN 1 GM in 250 ML IVPB (19:02)
[2018-04-20] MEDS: PANTOPRAZOLE 40 MG INJ IV (19:02)
[2018-04-20] MEDS: NYSTATIN SUSP 5 ML CUP PO (20:14)
[2018-04-21] MEDS: ALBUTEROL/IPRATROPIUM (NEB) 3 ML AMP HHN ×7 (00:39→23:09)
[2018-04-21] MEDS: DEXTROSE 5% 1,000 ML IV ×2 (01:00→11:54)
[2018-04-21] MEDS: HYDROmorphONE 0.5 MG/0.5 ML SYG IV ×6 (01:16→22:34)
[2018-04-21] MEDS: MEROPENEM 1 GM/50ML(PMX) 50 ML IVPB ×3 (05:35→22:51)
[2018-04-21] MEDS: PANTOPRAZOLE 40 MG INJ IV ×2 (05:35→18:33)
[2018-04-21] MEDS: NYSTATIN SUSP 5 ML CUP PO ×4 (09:05→21:01)
[2018-04-21] MEDS: OLOPATADINE 0.2% (ONCE A DAY) OPHTH DROP 2.5 ML BOTH EYES (09:05)
[2018-04-21] MEDS: SERTRALINE 100 MG TAB PO (09:06)
[2018-04-21] MEDS: MULTIVITAMINS THERAPEUTIC TAB PO (09:06)
[2018-04-21] MEDS: OXCARBAZEPINE 150 MG TAB PO ×2 (09:06→21:03)
[2018-04-21] MEDS: MAGNESIUM OXIDE 400 MG TAB PO ×2 (09:06→21:03)
[2018-04-21] MEDS: LACTOBACILLUS RHAMNOSUS CAP PO ×2 (09:06→21:03)
[2018-04-21] MEDS: FLUTICASONE/VILANTEROL 100-25 INH (09:07)
[2018-04-21 09:11] LABS: ADD MAN DIFF? NO
[2018-04-21 09:18] LABS: ABNORMAL IP MESSAGE 1; BASOPHILS % 0.2 % (0.0-2.0); EOSINOPHILS # 0.3 10^3/ul (0.0-0.5); EOSINOPHILS % 4.1 % (0.0-7.0); HEMATOCRIT 28.5 % (37.0-47.0); HEMOGLOBIN 8.1 g/dl (12.0-16.0); LYMPHOCYTES # 1.1 10^3/ul (0.8-2.9); LYMPHOCYTES % 13.3 % (15.0-51.0); MEAN CORPUSCULAR HEMOGLOBIN 25.2 pg (29.0-33.0); MEAN CORPUSCULAR HGB CONC 28.4 g/dl (32.0-37.0); MEAN CORPUSCULAR VOLUME 88.5 fl (82.0-101.0); MONOCYTE # 0.5 10^3/ul (0.3-0.9); MONOCYTES % 5.7 % (0.0-11.0); NEUTROPHIL # 6.1 10^3/ul (1.6-7.5); NEUTROPHILS % 76.3 % (39.0-77.0); PLATELET COUNT 212 10^3/UL (140-415); RED BLOOD COUNT 3.22 10^6/ul (4.20-5.40); RED CELL DISTRIBUTION WIDTH 16.8 % (11.5-14.5)
[2018-04-21 09:18] LABS: WHITE BLOOD COUNT 8.1 10^3/ul (4.8-10.8)
[2018-04-21 09:20] LABS: POSITIVE DIFF @See below
[2018-04-21 09:41] LABS: PHOSPHORUS 2.6 mg/dl (2.5-4.9)
[2018-04-21 09:41] LABS: MAGNESIUM 1.7 mg/dl (1.7-2.5)
[2018-04-21 09:51] LABS: B-TYPE NATRIURETIC PEPTIDE 4170 PG/ML (0-125)
[2018-04-21 09:53] LABS: ALANINE AMINOTRANSFERASE 42 IU/L (13-69); ALBUMIN 2.7 g/dl (3.3-4.9); ALBUMIN/GLOBULIN RATIO 0.87; ALKALINE PHOSPHATASE 75 IU/L (42-121); ANION GAP 6 (8-16); ASPARTATE AMINO TRANSFERASE 63 IU/L (15-46); BILIRUBIN,INDIRECT 0.1 mg/dl (0-1.1); BILIRUBIN,TOTAL 0.1 mg/dl (0.2-1.3); BLOOD UREA NITROGEN 3 mg/dl (7-20); CALCIUM 8.8 mg/dl (8.4-10.2); CARBON DIOXIDE 40 mmol/L (21-31); CHLORIDE 103 mmol/L (97-110); GLUCOSE 91 mg/dl (70-220); POTASSIUM 3.7 mmol/L (3.5-5.1); SODIUM 145 mmol/L (135-144); TOTAL PROTEIN 5.8 g/dl (6.1-8.1)
[2018-04-21 09:59] LABS: FREE T4 (FREE THYROXINE) 1.86 ng/dl (0.78-2.44)
[2018-04-21] MEDS: LIDOCAINE 2% (SDV) 5 ML INJ (13:23)
[2018-04-21] MEDS: PROPOFOL 20 ML (13:23)
[2018-04-21] MEDS: FENTAnyl 50 MCG/ML VIAL (13:24)
[2018-04-21] MEDS: MIDAZOLAM 1 MG/ML 2 ML INJ (13:24)
[2018-04-21] MEDS: PHENYLephrine (100 MCG/ML) 5ML SYG (13:24)
[2018-04-21] MEDS: ETOMIDATE 20 MG INJ (13:24)
[2018-04-21] MEDS ORDERED: VITAMIN A & D 5 GM OINT PACKET TOP (14:44)
[2018-04-21] MEDS: ERGOCALCIFEROL (8000 UNITS/ML PO SYG) PO (16:54)
[2018-04-21 18:32] LABS: VANCOMYCIN,TROUGH 10.2 ug/ml (10.0-20.0)
[2018-04-21] MEDS: SOD FERRIC GLUC COMPLX 125 MG in SOD CHLORIDE 0.9% 100 ML IVPB (18:33)
[2018-04-21] MEDS: SUCRALFATE (100 MG/ML) 10ML CUP GTB ×2 (18:33→21:00)
[2018-04-21] MEDS: VANCOMYCIN 1 GM in 250 ML IVPB (18:37)
[2018-04-21] MEDS: SPIRONOLACTONE 25 MG TAB PO (19:04)
[2018-04-21] MEDS: ACETAZOLAMIDE 500 MG INJ IV (20:58)
[2018-04-22] MEDS: DEXTROSE 5% 1,000 ML IV ×3 (03:29→20:49)
[2018-04-22] MEDS: ALBUTEROL/IPRATROPIUM (NEB) 3 ML AMP HHN ×5 (05:00→20:44)
[2018-04-22] MEDS: HYDROmorphONE 0.5 MG/0.5 ML SYG IV ×6 (05:18→21:40)
[2018-04-22] MEDS: PANTOPRAZOLE 40 MG INJ IV ×2 (05:18→17:19)
[2018-04-22] MEDS: MEROPENEM 1 GM/50ML(PMX) 50 ML IVPB (05:23)
[2018-04-22] MEDS: SUCRALFATE (100 MG/ML) 10ML CUP GTB ×4 (08:40→20:45)
[2018-04-22] MEDS: ERGOCALCIFEROL (8000 UNITS/ML PO SYG) PO (08:40)
[2018-04-22] MEDS: NYSTATIN SUSP 5 ML CUP PO ×4 (08:40→20:45)
[2018-04-22] MEDS: OLOPATADINE 0.2% (ONCE A DAY) OPHTH DROP 2.5 ML BOTH EYES (08:40)
[2018-04-22] MEDS: FLUTICASONE/VILANTEROL 100-25 INH (08:40)
[2018-04-22] MEDS: LACTOBACILLUS RHAMNOSUS CAP PO ×2 (08:41→20:45)
[2018-04-22] MEDS: MULTIVITAMINS THERAPEUTIC TAB PO (08:41)
[2018-04-22] MEDS: SPIRONOLACTONE 25 MG TAB PO (08:41)
[2018-04-22] MEDS: OXCARBAZEPINE 150 MG TAB PO ×2 (08:41→20:45)
[2018-04-22] MEDS: MAGNESIUM OXIDE 400 MG TAB PO ×2 (08:41→20:45)
[2018-04-22] MEDS: SERTRALINE 100 MG TAB PO (09:00)
[2018-04-22 10:40] LABS: ADD MAN DIFF? NO
[2018-04-22 10:41] LABS: ABNORMAL IP MESSAGE 1; BASOPHILS % 0.5 % (0.0-2.0); EOSINOPHILS # 0.5 10^3/ul (0.0-0.5); EOSINOPHILS % 5.8 % (0.0-7.0); HEMATOCRIT 29.1 % (37.0-47.0); HEMOGLOBIN 8.4 g/dl (12.0-16.0); LYMPHOCYTES % 12.7 % (15.0-51.0); MEAN CORPUSCULAR HEMOGLOBIN 25.8 pg (29.0-33.0); MEAN CORPUSCULAR HGB CONC 28.9 g/dl (32.0-37.0); MEAN CORPUSCULAR VOLUME 89.3 fl (82.0-101.0); MEAN PLATELET VOLUME 10.6 fl (7.4-10.4); MONOCYTE # 0.4 10^3/ul (0.3-0.9); MONOCYTES % 4.6 % (0.0-11.0); NEUTROPHIL # 6.1 10^3/ul (1.6-7.5); PLATELET COUNT 198 10^3/UL (140-415); RED BLOOD COUNT 3.26 10^6/ul (4.20-5.40)
[2018-04-22 10:44] LABS: POSITIVE DIFF @See below
[2018-04-22 11:08] LABS: ALANINE AMINOTRANSFERASE 38 IU/L (13-69); ALBUMIN 2.9 g/dl (3.3-4.9); ALBUMIN/GLOBULIN RATIO 0.85; ALKALINE PHOSPHATASE 75 IU/L (42-121); ANION GAP 8 (8-16); ASPARTATE AMINO TRANSFERASE 37 IU/L (15-46); BILIRUBIN,INDIRECT 0.2 mg/dl (0-1.1); BILIRUBIN,TOTAL 0.2 mg/dl (0.2-1.3); BLOOD UREA NITROGEN 4 mg/dl (7-20); CALCIUM 9.3 mg/dl (8.4-10.2); CARBON DIOXIDE 36 mmol/L (21-31); CHLORIDE 102 mmol/L (97-110); CREATININE 0.82 mg/dl (0.44-1.00); GLUCOSE 109 mg/dl (70-220); MAGNESIUM 1.6 mg/dl (1.7-2.5); POTASSIUM 3.8 mmol/L (3.5-5.1); SODIUM 142 mmol/L (135-144); TOTAL PROTEIN 6.3 g/dl (6.1-8.1)
[2018-04-22 11:18] LABS: B-TYPE NATRIURETIC PEPTIDE 3510 PG/ML (0-125)
[2018-04-22] MEDS: AMPICILLIN/SULB 3 GM/NS (PMX) 100 ML IVPB ×3 (13:23→23:01)
[2018-04-22] MEDS: SOD FERRIC GLUC COMPLX 125 MG in SOD CHLORIDE 0.9% 100 ML IVPB (17:18)
[2018-04-22] MEDS ORDERED: VANCOMYCIN 1.25 GM in SOD CHLORIDE 0.9% 250 ML IVPB (18:00)
[2018-04-22] MEDS: ACETAZOLAMIDE 500 MG INJ IV (18:33)
[2018-04-22] MEDS: MAGNESIUM SULFATE 1 GM/D5W 100 ML IVPB (18:34)
[2018-04-23] MEDS: ALBUTEROL/IPRATROPIUM (NEB) 3 ML AMP HHN ×7 (01:00→20:57)
[2018-04-23] MEDS: HYDROmorphONE 0.5 MG/0.5 ML SYG IV ×6 (04:31→20:42)
[2018-04-23] MEDS: PANTOPRAZOLE 40 MG INJ IV ×2 (05:39→18:09)
[2018-04-23] MEDS: AMPICILLIN/SULB 3 GM/NS (PMX) 100 ML IVPB ×3 (05:39→18:09)
[2018-04-23 07:05] LABS: ADD MAN DIFF? NO
[2018-04-23 07:09] LABS: WHITE BLOOD COUNT 8.8 10^3/ul (4.8-10.8)
[2018-04-23 07:09] LABS: ABNORMAL IP MESSAGE 1; BASOPHILS % 0.3 % (0.0-2.0); EOSINOPHILS # 0.6 10^3/ul (0.0-0.5); EOSINOPHILS % 6.3 % (0.0-7.0); HEMATOCRIT 29.5 % (37.0-47.0); HEMOGLOBIN 8.5 g/dl (12.0-16.0); LYMPHOCYTES # 1.2 10^3/ul (0.8-2.9); LYMPHOCYTES % 13.2 % (15.0-51.0); MEAN CORPUSCULAR HEMOGLOBIN 25.6 pg (29.0-33.0); MEAN CORPUSCULAR HGB CONC 28.8 g/dl (32.0-37.0); MEAN CORPUSCULAR VOLUME 88.9 fl (82.0-101.0); MEAN PLATELET VOLUME 11.4 fl (7.4-10.4); MONOCYTE # 0.4 10^3/ul (0.3-0.9); MONOCYTES % 4.8 % (0.0-11.0); NEUTROPHIL # 6.6 10^3/ul (1.6-7.5); NEUTROPHILS % 74.8 % (39.0-77.0); PLATELET COUNT 217 10^3/UL (140-415); RED BLOOD COUNT 3.32 10^6/ul (4.20-5.40); RED CELL DISTRIBUTION WIDTH 17.1 % (11.5-14.5)
[2018-04-23 07:32] LABS: POSITIVE DIFF @See below
[2018-04-23 07:33] LABS: ANION GAP 8 (8-16); BLOOD UREA NITROGEN 4 mg/dl (7-20); CALCIUM 9.1 mg/dl (8.4-10.2); CARBON DIOXIDE 35 mmol/L (21-31); CHLORIDE 103 mmol/L (97-110); CREATININE 0.78 mg/dl (0.44-1.00); GLUCOSE 90 mg/dl (70-220); POTASSIUM 3.9 mmol/L (3.5-5.1); SODIUM 142 mmol/L (135-144)
[2018-04-23] MEDS: HYDROCODONE/APAP (5/325) TAB PO ×2 (08:51→20:15)
[2018-04-23] MEDS: NYSTATIN SUSP 5 ML CUP PO ×4 (08:52→20:18)
[2018-04-23] MEDS: SUCRALFATE (100 MG/ML) 10ML CUP GTB ×4 (08:52→20:18)
[2018-04-23] MEDS: SERTRALINE 100 MG TAB PO (08:52)
[2018-04-23] MEDS: MAGNESIUM OXIDE 400 MG TAB PO ×2 (08:52→20:18)
[2018-04-23] MEDS: MULTIVITAMINS THERAPEUTIC TAB PO (08:52)
[2018-04-23] MEDS: LACTOBACILLUS RHAMNOSUS CAP PO ×2 (08:53→20:17)
[2018-04-23] MEDS: OXCARBAZEPINE 150 MG TAB PO ×2 (08:54→20:17)
[2018-04-23] MEDS: ERGOCALCIFEROL (8000 UNITS/ML PO SYG) PO (08:54)
[2018-04-23] MEDS: SPIRONOLACTONE 25 MG TAB PO (08:54)
[2018-04-23] MEDS: FLUTICASONE/VILANTEROL 100-25 INH (08:57)
[2018-04-23] MEDS: OLOPATADINE 0.2% (ONCE A DAY) OPHTH DROP 2.5 ML BOTH EYES (08:57)
[2018-04-23] MEDS: DEXTROSE 5% 1,000 ML IV (12:38)
[2018-04-23] MEDS: SOD FERRIC GLUC COMPLX 125 MG in SOD CHLORIDE 0.9% 100 ML IVPB (16:57)
[2018-04-23] MEDS: ACETAZOLAMIDE 500 MG INJ IV (20:18)
[2018-04-24] MEDS: ALBUTEROL/IPRATROPIUM (NEB) 3 ML AMP HHN ×6 (01:00→21:51)
[2018-04-24] MEDS: PANTOPRAZOLE 40 MG INJ IV ×2 (05:03→17:17)
[2018-04-24] MEDS: AMPICILLIN/SULB 3 GM/NS (PMX) 100 ML IVPB ×2 (05:06)
[2018-04-24] MEDS: DEXTROSE 5% 1,000 ML IV ×2 (05:07→22:51)
[2018-04-24] MEDS: HYDROmorphONE 0.5 MG/0.5 ML SYG IV ×5 (05:11→20:58)
[2018-04-24 08:59] LABS: ADD MAN DIFF? NO
[2018-04-24] MEDS: ERGOCALCIFEROL (8000 UNITS/ML PO SYG) PO ×2 (09:00→17:18)
[2018-04-24 09:01] LABS: ABNORMAL IP MESSAGE 1; BASOPHILS % 0.4 % (0.0-2.0); EOSINOPHILS # 0.5 10^3/ul (0.0-0.5); HEMATOCRIT 29.9 % (37.0-47.0); HEMOGLOBIN 8.5 g/dl (12.0-16.0); LYMPHOCYTES # 1.2 10^3/ul (0.8-2.9); LYMPHOCYTES % 16.3 % (15.0-51.0); MEAN CORPUSCULAR HEMOGLOBIN 25.2 pg (29.0-33.0); MEAN CORPUSCULAR HGB CONC 28.4 g/dl (32.0-37.0); MEAN CORPUSCULAR VOLUME 88.7 fl (82.0-101.0); MEAN PLATELET VOLUME 11.1 fl (7.4-10.4); MONOCYTE # 0.4 10^3/ul (0.3-0.9); MONOCYTES % 5.4 % (0.0-11.0); NEUTROPHIL # 5.4 10^3/ul (1.6-7.5); NEUTROPHILS % 71.6 % (39.0-77.0); PLATELET COUNT 215 10^3/UL (140-415); RED BLOOD COUNT 3.37 10^6/ul (4.20-5.40); RED CELL DISTRIBUTION WIDTH 17.2 % (11.5-14.5)
[2018-04-24 09:01] LABS: WHITE BLOOD COUNT 7.5 10^3/ul (4.8-10.8)
[2018-04-24] MEDS: LACTOBACILLUS RHAMNOSUS CAP PO ×2 (09:02→20:57)
[2018-04-24] MEDS: NYSTATIN SUSP 5 ML CUP PO ×4 (09:02→21:00)
[2018-04-24] MEDS: MAGNESIUM OXIDE 400 MG TAB PO ×2 (09:02→20:57)
[2018-04-24] MEDS: SUCRALFATE (100 MG/ML) 10ML CUP GTB ×4 (09:02→20:57)
[2018-04-24] MEDS: ACETAZOLAMIDE 500 MG INJ IV (09:02)
[2018-04-24] MEDS: OLOPATADINE 0.2% (ONCE A DAY) OPHTH DROP 2.5 ML BOTH EYES (09:03)
[2018-04-24] MEDS: SPIRONOLACTONE 25 MG TAB PO (09:03)
[2018-04-24] MEDS: MULTIVITAMINS THERAPEUTIC TAB PO (09:03)
[2018-04-24] MEDS: SERTRALINE 100 MG TAB PO (09:03)
[2018-04-24] MEDS: OXCARBAZEPINE 150 MG TAB PO ×2 (09:03→21:00)
[2018-04-24] MEDS: FLUTICASONE/VILANTEROL 100-25 INH (09:04)
[2018-04-24 09:11] LABS: POSITIVE DIFF @See below
[2018-04-24 09:33] LABS: ALANINE AMINOTRANSFERASE 28 IU/L (13-69); ALBUMIN 2.6 g/dl (3.3-4.9); ALBUMIN/GLOBULIN RATIO 0.89; ALKALINE PHOSPHATASE 90 IU/L (42-121); ANION GAP 5 (8-16); ASPARTATE AMINO TRANSFERASE 19 IU/L (15-46); BILIRUBIN,INDIRECT 0.1 mg/dl (0-1.1); BILIRUBIN,TOTAL 0.1 mg/dl (0.2-1.3); BLOOD UREA NITROGEN 5 mg/dl (7-20); CALCIUM 9.2 mg/dl (8.4-10.2); CARBON DIOXIDE 37 mmol/L (21-31); CHLORIDE 104 mmol/L (97-110); CREATININE 0.78 mg/dl (0.44-1.00); GLUCOSE 84 mg/dl (70-220); MAGNESIUM 1.6 mg/dl (1.7-2.5); POTASSIUM 3.9 mmol/L (3.5-5.1); SODIUM 142 mmol/L (135-144); TOTAL PROTEIN 5.5 g/dl (6.1-8.1)
[2018-04-24 09:36] LABS: B-TYPE NATRIURETIC PEPTIDE 1370 PG/ML (0-125)
[2018-04-24] MEDS: SOD FERRIC GLUC COMPLX 125 MG in SOD CHLORIDE 0.9% 100 ML IVPB (17:15)
[2018-04-25] MEDS: ALBUTEROL/IPRATROPIUM (NEB) 3 ML AMP HHN ×6 (01:00→20:22)
[2018-04-25] MEDS: PANTOPRAZOLE 40 MG INJ IV ×2 (06:01→17:32)
[2018-04-25] MEDS: HYDROmorphONE 0.5 MG/0.5 ML SYG IV ×5 (06:06→20:00)
[2018-04-25 07:58] LABS: ADD MAN DIFF? NO
[2018-04-25 08:00] LABS: BASOPHILS % 0.3 % (0.0-2.0); EOSINOPHILS # 0.5 10^3/ul (0.0-0.5); EOSINOPHILS % 5.8 % (0.0-7.0); HEMATOCRIT 30.7 % (37.0-47.0); HEMOGLOBIN 8.9 g/dl (12.0-16.0); LYMPHOCYTES # 1.1 10^3/ul (0.8-2.9); LYMPHOCYTES % 13.4 % (15.0-51.0); MEAN CORPUSCULAR HEMOGLOBIN 25.4 pg (29.0-33.0); MEAN CORPUSCULAR VOLUME 87.5 fl (82.0-101.0); MEAN PLATELET VOLUME 11.3 fl (7.4-10.4); MONOCYTE # 0.3 10^3/ul (0.3-0.9); MONOCYTES % 3.8 % (0.0-11.0); NEUTROPHILS % 76.3 % (39.0-77.0); PLATELET COUNT 219 10^3/UL (140-415); RED BLOOD COUNT 3.51 10^6/ul (4.20-5.40); RED CELL DISTRIBUTION WIDTH 17.2 % (11.5-14.5)
[2018-04-25 08:00] LABS: WHITE BLOOD COUNT 7.9 10^3/ul (4.8-10.8)
[2018-04-25 08:22] LABS: ANION GAP 9 (8-16); BLOOD UREA NITROGEN 6 mg/dl (7-20); CALCIUM 9.5 mg/dl (8.4-10.2); CARBON DIOXIDE 32 mmol/L (21-31); CHLORIDE 105 mmol/L (97-110); CREATININE 0.91 mg/dl (0.44-1.00); GLUCOSE 112 mg/dl (70-220); POTASSIUM 3.9 mmol/L (3.5-5.1); SODIUM 142 mmol/L (135-144)
[2018-04-25] MEDS: FLUTICASONE/VILANTEROL 100-25 INH (08:26)
[2018-04-25] MEDS: OLOPATADINE 0.2% (ONCE A DAY) OPHTH DROP 2.5 ML BOTH EYES (08:26)
[2018-04-25] MEDS: SUCRALFATE (100 MG/ML) 10ML CUP GTB ×4 (08:26→20:49)
[2018-04-25] MEDS: NYSTATIN SUSP 5 ML CUP PO ×4 (08:26→20:49)
[2018-04-25] MEDS: MAGNESIUM OXIDE 400 MG TAB PO ×2 (08:26→20:50)
[2018-04-25] MEDS: OXCARBAZEPINE 150 MG TAB PO ×2 (08:27→20:49)
[2018-04-25] MEDS: SERTRALINE 100 MG TAB PO (08:27)
[2018-04-25] MEDS: MULTIVITAMINS THERAPEUTIC TAB PO (08:27)
[2018-04-25] MEDS: LACTOBACILLUS RHAMNOSUS CAP PO ×2 (08:27→20:50)
[2018-04-25] MEDS: SPIRONOLACTONE 25 MG TAB PO (08:27)
[2018-04-25] MEDS: FUROSEMIDE 40 MG TAB PO (11:11)
[2018-04-25] MEDS: DEXTROSE 5% 1,000 ML IV (11:23)
[2018-04-25] MEDS: SOD FERRIC GLUC COMPLX 125 MG in SOD CHLORIDE 0.9% 100 ML IVPB (17:36)
[2018-04-25] MEDS: NYSTATIN 30 GM POWDER BTL TOP (20:49)
== END 2018-04-25 23:00 | disposition short-term general hospital (02) | DRG 871 ==
LOC: E/R 10:22 → TEL 04-20 18:21 → ICU 19:11
PROC: 0DB68ZX Excision of Stomach, Via Natural or Artificial Opening Endoscopic, Diagnostic (ICD-10-PCS; principal; 2018-04-21 12:00)
PROC: 5A09357 Assistance with Respiratory Ventilation, Less than 24 Consecutive Hours, Continuous Positive Airway Pressure (ICD-10-PCS; 2018-04-21 13:10)
PROC: 4A033R1 Measurement of Arterial Saturation, Peripheral, Percutaneous Approach (ICD-10-PCS; 2018-04-21 13:10)
PROC: 02HV33Z Insertion of Infusion Device into Superior Vena Cava, Percutaneous Approach (ICD-10-PCS; 2018-04-21 13:10)
PROC: B54MZZA Ultrasonography of Right Upper Extremity Veins, Guidance (ICD-10-PCS; 2018-04-21 13:10)
DX: A41.9 Sepsis, unspecified organism (principal); R65.21 Severe sepsis with septic shock; J18.9 Pneumonia, unspecified organism; G92 Toxic encephalopathy; I50.33 Acute on chronic diastolic (congestive) heart failure; J96.21 Acute and chronic respiratory failure with hypoxia; J96.22 Acute and chronic respiratory failure with hypercapnia; J44.0 Chronic obstructive pulmonary disease with (acute) lower respiratory infection; E87.0 Hyperosmolality and hypernatremia; Z68.41 Body mass index [BMI] 40.0-44.9, adult; J44.1 Chronic obstructive pulmonary disease with (acute) exacerbation; E78.00 Pure hypercholesterolemia, unspecified; I27.20 Pulmonary hypertension, unspecified; I11.0 Hypertensive heart disease with heart failure; K21.0 Gastro-esophageal reflux disease with esophagitis; E83.42 Hypomagnesemia; K22.5 Diverticulum of esophagus, acquired; J03.90 Acute tonsillitis, unspecified; E66.01 Morbid (severe) obesity due to excess calories; K29.70 Gastritis, unspecified, without bleeding; D63.8 Anemia in other chronic diseases classified elsewhere; Z87.891 Personal history of nicotine dependence; Z85.118 Personal history of other malignant neoplasm of bronchus and lung; Z90.2 Acquired absence of lung [part of]
CPT/HCPCS: 36415; 36569; 36600; 71045; 76937; 80048; 80053; 80061; 80202; 81003; 82728; 82803; 83036; 83540; 83605; 83735; 83880; 84100; 84439; 84443; 84484; 85025; 85610; 85730; 87040; 87070; 87081; 88305; 88312; 92610; 93005; 94640; 94644; 94645; 94660; 94664; 96365; 96366; 96375; 97110; 97163; 97167; 97530; 99291-25; J1120